=== PATIENT | male | born 1975 | race Caucasian/White ===

== ENCOUNTER 2017-01-22 18:59 | Inpatient (IN) | payer BC ==
[~2017-01-22] VITALS: Ht 182.9 cm; Wt 156.0 kg
[2017-01-22 22:40] VITALS: Ht 182.9 cm; Wt 156.0 kg
[2017-01-23] MEDS ORDERED: POLYETHYLENE GLYCOL 17 GM PACKET PO PRN
[2017-01-23] MEDS ORDERED: ONDANSETRON 4 MG INJ IV PRN
[2017-01-23] MEDS ORDERED: MAGNESIUM HYDROXIDE 30ML CUP PO PRN
[2017-01-23] MEDS ORDERED: BISACODYL 10 MG SUPP PR PRN
[2017-01-23] MEDS ORDERED: ACETAMINOPHEN 325 MG TAB PO PRN
[2017-01-23] MEDS ORDERED: LACTULOSE 30ML CUP PO PRN
[2017-01-23] MEDS: oxyCODONE 5 MG TAB PO SCH ×4 (00:50→18:00)
[2017-01-23] MEDS: SOD CHLORIDE 0.9% 1,000 ML IV SCH (00:54)
[2017-01-23 02:34] LABS: ADD UMIC NO; URINE BILIRUBIN (Dip) NEGATIVE (NEGATIVE); URINE BLOOD (Dip) NEGATIVE (NEGATIVE); URINE COLOR LT. YELLOW (YELLOW); URINE GLUCOSE (Dip) NEGATIVE (NEGATIVE); URINE KETONES (Dip) NEGATIVE (NEGATIVE); URINE LEUKOCYTE ESTERASE (Dip) NEGATIVE (NEGATIVE); URINE NITRITE (Dip) NEGATIVE (NEGATIVE); URINE TOTAL PROTEIN (Dip) NEGATIVE (NEGATIVE); URINE UROBILINOGEN (Dip) 0.2 E.U./dL (0.1-1.0)
[2017-01-23 07:30] VITALS: BP 125/65; RESP 18
[2017-01-23 07:37] LABS: ADD SCAN DIFF NO
[2017-01-23 07:39] LABS: BASOPHIL # 0.1 10^3/ul (0.0-0.1); BASOPHILS % 0.7 % (0.0-2.0); EOSINOPHILS # 0.3 10^3/ul (0.0-0.5); EOSINOPHILS % 3.3 % (0.0-7.0); HEMATOCRIT 40.3 % (42.0-52.0); HEMOGLOBIN 12.7 g/dl (14.0-18.0); LYMPHOCYTES # 4.9 10^3/ul (0.8-2.9); MEAN CORPUSCULAR HEMOGLOBIN 29.3 pg (29.0-33.0); MEAN CORPUSCULAR HGB CONC 31.5 g/dl (32.0-37.0); MEAN CORPUSCULAR VOLUME 93.1 fl (82.0-101.0); MEAN PLATELET VOLUME 10.2 fl (7.4-10.4); MONOCYTE # 0.6 10^3/ul (0.3-0.9); MONOCYTES % 7.3 % (0.0-11.0); NEUTROPHIL # 2.6 10^3/ul (1.6-7.5); NEUTROPHILS % 30.2 % (39.0-77.0); PLATELET COUNT 301 10^3/UL (140-415); RED BLOOD COUNT 4.33 10^6/ul (4.70-6.10); RED CELL DISTRIBUTION WIDTH 13.4 % (11.5-14.5); WHITE BLOOD COUNT 8.5 10^3/ul (4.8-10.8)
[2017-01-23] MEDS: HYDROmorphONE 1 MG/ML SYG IV PRN ×4 (07:48→19:05)
[2017-01-23 08:05] LABS: ALBUMIN 4.1 g/dl (3.3-4.9); ALBUMIN/GLOBULIN RATIO 1.36; BILIRUBIN,INDIRECT 0.3 mg/dl (0-1.1); BILIRUBIN,TOTAL 0.3 mg/dl (0.2-1.3); CALCIUM 9.2 mg/dl (8.4-10.2); CREATININE 0.9 mg/dl (0.61-1.24); POTASSIUM 4.2 mmol/L (3.5-5.1); TOTAL PROTEIN 7.1 g/dl (6.1-8.1)
[2017-01-23] MEDS: MAGNESIUM SULFATE 2 GM/50 ML 50 ML IVPB SCH (09:17)
[2017-01-23] MEDS: DOCUSATE SODIUM 100 MG CAP PO SCH ×2 (09:19→20:56)
[2017-01-23] MEDS: FAMOTIDINE 20 MG TAB PO SCH ×2 (09:20→20:56)
[2017-01-23] MEDS: TOPIRAMATE 25 MG TAB PO SCH ×2 (09:20→20:56)
[2017-01-23] MEDS: SENNA TAB PO SCH ×2 (09:20→20:56)
[2017-01-23] MEDS: ASCORBIC ACID 500 MG TAB PO SCH ×2 (09:20→20:56)
[2017-01-23] MEDS: ENOXAPARIN 40 MG/0.4 ML SYG SC SCH (09:22)
[2017-01-23] MEDS ORDERED: HYDROmorphONE 1 MG/ML SYG IV STA (10:19)
--- NOTE | 2017-01-23 11:16 | CONS ---
DATE OF ADMISSION: 01/22/2017 DATE OF CONSULTATION: REHABILITATION POST ADMISSION PHYSICIAN EVALUATION REHABILITATION IMPAIRMENT CATEGORY: Diffuse subarachnoid hemorrhage, status post ventriculostomy and extraventricular drain placement with eventual removal. ACTIVE COMORBIDITIES: 1. Hypertension. 2. Morbid obesity. 3. Impairments in self-care, mobility and cognition. HISTORY OF PRESENT ILLNESS: The patient is a pleasant 41-year-old right-handed gentleman with a history of morbid obesity and hypertension who was noted to have severe headache and chest pain on 01/05/2017. The patient was brought to the hospital where he was noted to have a diffuse subarachnoid hemorrhage. The patient underwent ventriculostomy and extraventricular drain placement. The patient's hospital course also notable for severe hypertension with systolic blood pressure to the 200s. The patient now has been cleared to transfer to the rehabilitation unit for comprehensive interdisciplinary rehab care. FUNCTIONAL HISTORY: Prior to recent events, he was independent in self-care tasks and mobility. Currently, requires moderate assist for self-care and mobility tasks. SOCIAL HISTORY: The patient lives at home with and hopes to return there upon discharge. I have reviewed the preadmission screen and the patient's current functional status is consistent with the preadmission screen. CURRENT MEDICATIONS: 1. Zofran p.r.n. 2. Colace 100 mg b.i.d. 3. MiraLax p.r.n. 4. Nimodipine 60 mg q.4h. 5. Magnesium IV. 6. Ascorbic acid 500 mg b.i.d. 7. Pepcid 20 mg b.i.d. 8. Labetalol p.r.n. 9. Oxycodone p.r.n. 10. Topamax 25 mg b.i.d. 11. Dilaudid 0.5 mg p.r.n. ALLERGIES: THE PATIENT WITH NO KNOWN DRUG ALLERGIES. PHYSICAL EXAMINATION: VITAL SIGNS: The patient is currently afebrile with stable vital signs. HEENT: The extraocular motions are intact. Oropharynx is clear. NECK: Supple. LUNGS: Clear anteriorly. CARDIAC: S1, S2. ABDOMEN: Soft, nontender, positive bowel sounds. NEUROLOGIC: He is awake and alert. He is oriented to person and hospital. He will follow simple 1-step commands. Cranial nerves are grossly intact. He has good strength. He has antigravity strength in bilateral upper extremity and lower extremity. Does have impaired dynamic balance. PLAN: The patient has been admitted for comprehensive interdisciplinary acute rehabilitation and is anticipated to tolerate 3 hours of daily therapy in divided doses for at least 5/7 days a week. The treatment plan will include: 1. Physical therapy to focus on bed mobility, transfers, and household ambulation with the goal of having the patient reach a standby assist level. 2. Occupational therapy to focus on hygiene, grooming, dressing, bathing, and toileting activities with the goal of having the patient reach standby assist level. 3. Rehabilitation nursing for carryover of therapeutic interventions, the goal of continent of bowel and bladder, and the goal of patient and family education with regard to the aforementioned issues. 4. Rehabilitation speech therapy for full cognitive assessment and retraining with the goal of having patient return to baseline cognition. Esitmated Length Of Stay: 2 weeks Rehabilitation Barrier: Obesity Intervention For Barrier: Interdisciplinary rehabilitation DISPOSITION GOAL: Home with family I acknowledge that I performed a full physical examination on this patient within 24 hours of admission to the rehabilitation unit. I believe the patient is a good candidate for comprehensive interdisciplinary rehab care and is anticipated to make reasonable goals in a reasonable period of time as outlined above. Dictated By: MILTON FERREIRA/CARMELA Conf#: [id number] DID#: [id number] ANITA
[2017-01-23] MEDS: VITAMIN B COMPLEX/VIT C CAP PO SCH (18:09)
--- NOTE | 2017-01-23 19:16 | QN ---
Documentation Comment [id number] EVERETTE SIDHU MD Jan 23, 2017 19:16
[2017-01-23 20:00] VITALS: BP 123/65; RESP 16
[2017-01-24] MEDS: SOD CHLORIDE 0.9% 1,000 ML IV SCH (00:30)
[2017-01-24] MEDS: oxyCODONE 5 MG TAB PO SCH ×4 (00:45→17:21)
--- NOTE | 2017-01-24 06:34 | CONS ---
DATE OF ADMISSION: 01/22/2017 DATE OF CONSULTATION: TYPE OF CONSULTATION: Medicine. HISTORY OF PRESENT ILLNESS: Salvatore Sullivan is a 41-year-old male who was transferred from [facility]. A 41-year-old male with no significant past medical history in the past, presents to the hospital with headache. The patient was giving a sermon in yazidi. He then stepped outside and 1 minute later ran back holding his head, complaining of headache and chest pain. He has been complaining of severe sudden-onset headache, and he was noted to have a facial droop, slurred speech. He was taken to , where CT head showed a subarachnoid hemorrhage. Blood pressure was in the 200s. He was given Cardene and mannitol, morphine. The patient was monitored in intensive care unit. The patient noted to have subarachnoid hemorrhage. The patient now is transferred to [facility] for physical therapy. The patient also noted to have leukocytosis, CSF pleocytosis, received antibiotic. The patient was also given DDAVP and platelets per Hematology. The patient also has carotid artery angiogram done. The patient's blood pressure being recorded as 135/69. The patient denies any headache at this point. PAST MEDICAL HISTORY: Positive for hypertension. ALLERGY HISTORY: NEGATIVE. FAMILY HISTORY: Hypertension. SOCIAL HISTORY: Negative. MEDICATION HISTORY: 1. Zofran. 2. Colace. 3. MiraLax. 4. Nimodipine. 5. Magnesium . 6. Ascorbic acid. 7. Pepcid. 8. Labetalol. 9. Oxycodone. 10. Topamax. 11. Dilaudid. 12. Lovenox. 13. Riboflavin. 14. vit. 15. Milk of magnesia. 16. Lactulose. 17. Dulcolax. 18. Senna. 19. Tylenol. . REVIEW OF SYSTEMS: HEENT: Unremarkable. RESPIRATORY: Unremarkable. CARDIOVASCULAR: No chest pain, palpitation. ABDOMEN: No dyspepsia. EXTREMITIES: Unremarkable. CENTRAL NERVOUS SYSTEM: Complains of this weakness but able to move both upper , lower extremities. PHYSICAL EXAMINATION: GENERAL: The patient is obese, overweight male, awake, alert, not in any acute respiratory distress. VITAL SIGNS: Stable. Pulse 80, blood pressure 125/65. HEAD: The patient is status post ventriculostomy and no drain noted . NECK: Supple. No JVD. LUNGS: Clear. CARDIOVASCULAR: S1, S2 are normal. ABDOMEN: Soft, obese. Bowel sounds present. No palpable mass. EXTREMITIES: There is no cyanosis, clubbing or edema. CENTRAL NERVOUS SYSTEM: The patient is awake, alert, moving both upper and lower extremities. LABORATORY DATA: WBC 8.5, hematocrit 40.3. Sodium 130, potassium 4.2. IMPRESSION: 1. The patient has subarachnoid hemorrhage, status post ventriculostomy and removal. 2. The patient is status post angiogram. 3. Hypertension. 4. Anemia. PLAN: At this point is to continue current treatment, physical therapy, occupational therapy. Other recommendations per Dr. Viktor Shanks for physical therapy. Dictated By: EVERETTE MIXON/CARMELA Conf#: [id number] DID#: [id number] MTDD
[2017-01-24 07:44] VITALS: BP 115/61; RESP 18
[2017-01-24] MEDS: HYDROmorphONE 1 MG/ML SYG IV PRN ×4 (07:47→19:02)
[2017-01-24] MEDS: SENNA TAB PO SCH ×2 (08:24→20:58)
[2017-01-24] MEDS: DOCUSATE SODIUM 100 MG CAP PO SCH ×2 (08:25→20:57)
[2017-01-24] MEDS: FAMOTIDINE 20 MG TAB PO SCH ×2 (08:25→20:57)
[2017-01-24] MEDS: ASCORBIC ACID 500 MG TAB PO SCH ×2 (08:25→20:58)
[2017-01-24] MEDS: VITAMIN B COMPLEX/VIT C CAP PO SCH (08:25)
[2017-01-24] MEDS: ENOXAPARIN 40 MG/0.4 ML SYG SC SCH (08:26)
[2017-01-24] MEDS: TOPIRAMATE 25 MG TAB PO SCH ×2 (08:33→20:58)
[2017-01-24] MEDS: MAGNESIUM SULFATE 2 GM/50 ML 50 ML IVPB SCH (10:29)
--- NOTE | 2017-01-24 11:32 | CONS ---
Date/Time of Note Date/Time of Note DATE: 01/24/17 TIME: 11:29 Consult Date/Type/Reason Admit Date/Time January 22, 2017 at 22:10 Initial Consult Date Subjective patient complains of increased headache today, also with increased diplopia Objective disconjugate gaze follows commands, antigravity strength in 4 extremities Vital Signs Date Time Temp Pulse Resp B/P Pulse Ox O2 Delivery O2 Flow Rate FiO2 01/24/17 07:44 98.7 77 18 115/61 96 Intake and Output 01/23/17 01/23/17 01/24/17 15:00 23:00 07:00 Intake Total 50 ml 1060 ml 240 ml Output Total 620 ml 850 ml Balance 50 ml 440 ml -610 ml Results/Medications Result Diagram: 01/23/1760401/23/17 06 Medications Current Medications Nimodipine 60 mg 60 mg Q4 PO Last administered on 01/24/17 08:33; Admin Dose 60 MG; Start 01/23/17 at 01:00; Stop 01/26/17 at 23:59 Sodium Chloride (NS) 1,000 ml @ 20 mls/hr Q24H IV Last administered on 00:54; Admin Dose 20 MLS/HR; Start 01/23/17 at 00:30 Enoxaparin Sodium (Lovenox) 40 mg DAILY SC Last administered on 01/24/17 08:26 ; Admin Dose 40 MG; Start 01/23/17 at 09:00 Magnesium Oxide (Mag-Ox 400) 400 mg BID PO ; Start 01/27/17 at 09:00 Ondansetron HCl (Zofran Inj) 4 mg Q8H PRN IV NAUSEA AND/OR VOMITING; Start 01/23 at 00:00 Docusate Sodium (Colace) 100 mg BID PO Last administered on 01/24/17 08:25; Admin Dose 100 MG; Start 01/23/17 at 09:00 Magnesium Hydroxide (Milk Of Mag) 30 ml Q6H PRN PO CONSTIPATION; Start 01/23/17 at 00:00 Lactulose (Enulose) 20 gm BID PRN PO CONSTIPATION; Start 01/23/17 at 00:00 Bisacodyl (Dulcolax Supp) 10 mg Q24H PRN [place] CONSTIPATION; Start 01/23/17 at 00: 00 Polyethylene Glycol 17 gm 17 gm DAILY PRN PO CONSTIPATION; Start 01/23/17 at 00: 00 Magnesium Sulfate (Magnesium Sulfate 2 Gm/50 ml) 50 ml @ 25 mls/hr DAILY IVPB Last administered on 01/24/17 10:29; Admin Dose 25 MLS/HR; Start 01/23/17 at 09: 00; Stop 01/26/17 at 08:59 Ascorbic Acid (Vitamin C) 500 mg BID PO Last administered on 01/24/17 08:25; Admin Dose 500 MG; Start 01/23/17 at 09:00; Stop 01/26/17 at 08:59 Famotidine (Pepcid) 20 mg BID PO Last administered on 01/24/17 08:25; Admin Dose 20 MG; Start 01/23/17 at 09:00 Senna (Senokot) 1 tab BID PO Last administered on 01/24/17 08:24; Admin Dose 1 TAB; Start 01/23/17 at 09:00 Acetaminophen (Tylenol Tab) 650 mg Q6H PRN PO ELEVATED TEMPERATURE; Start at 00:00 Topiramate (Topamax) 25 mg BID PO Last administered on 01/24/17 08:33; Admin Dose 25 MG; Start 01/23/17 at 09:00 Oxycodone HCl (Roxicodone) 20 mg Q6 PO Last administered on 01/24/17 05:31; Admin Dose 20 MG; Start 01/23/17 at 12:00 Vitamin B Complex/ Vitamin C (Berocca) 1 cap DAILY PO Last administered on 08:25; Admin Dose 1 CAP; Start 01/23/17 at 15:00 Hydromorphone HCl (Dilaudid) 1 mg Q3H PRN IV SEVERE PAIN Last administered on 07:47; Admin Dose 1 MG; Start 01/23/17 at 21:00 Assessment/Plan Additional Assessment/Plan Rehab- diffuse SAH, s/p ventriculostomy Now with worsening diplia. Will order stat head CT, and neurochecks. HTN morbid obesity MILTON STATON MD Jan 24, 2017 11:32
--- NOTE | 2017-01-24 12:48 | RADRPT ---
PROCEDURE: CT Brain without. CLINICAL INDICATION: Double vision. TECHNIQUE: A CT of the brain was performed on multidetector high-resolution CT scanner utilizing a xial sections from the skull base through the vertex without contrast. The scan was reviewed in sof t tissue brain and high frequency resolution bone algorithm windows. Images were reviewed on a high -resolution PACS workstation. One or more the following does reduction techniques were utilized: Aut omated exposure control, adjustment of the mA/ or kV according to patient's size, or use of iterativ e reconstruction technique. The exam CTDI = 44.88 mGy and the DLP = 720.23 mGy-cm. COMPARISON: None available. FINDINGS: There is small right frontal robert hole with associated linear encephalomalacia in the right frontal lobe which likely represent sequela of prior ventriculostomy catheter. The ventricles and sulci are mildly enlarged indicative of volume loss. There is no intracranial hem orrhage, mass effect or midline shift. No abnormal intra-axial or extra-axial fluid collections are seen. The justin/white matter differentiation is preserved. No acute skull abnormality is noted. The visualized paranasal sinuses are essentially clear. IMPRESSION: 1. No acute intracranial hemorrhage, transcortical infarction or mass effect. If clinical concern p ersists consider brain MRI. RPTAT: JJ .Dayday Gusman MD, MD Date Time Electronically viewed and signed by .Dayday Gusman MD, MD on 01/24/2017 12:48 .N/
--- NOTE | 2017-01-24 13:34 | PN ---
Date/Time of Note Date/Time of Note DATE: 01/24/17 TIME: 13:32 Assessment/Plan VTE Prophylaxis VTE Prophylaxis Intervention: SCD's Lines/Catheters IV [facility]from [facility] Mid Line Central line still needed: Yes Urinary Cath still in place: No Assessment/Plan Chief Complaint/Hosp Course 1. The patient has subarachnoid hemorrhage, status post ventriculostomy and removal. 2. The patient is status post heart angiogram. 3. Hypertension. 4. Anemia. 5. diplopia 6. Obesity Problems: Assessment/Plan 1. Continue PT and OT 2. Abnormal Ct scan 3. Dr Cadena for consult Subjective 24 Hr Interval Summary Constitutional: no complaints Eyes: other (diplopia), visual change Respiratory: no complaints Cardiovascular: no complaints Gastrointestinal: no complaints Genitourinary: no complaints Neurologic: headache (12/02) Immunologic: no complaints Exam/Review of Systems Vital Signs Vitals Vital Signs Date Time Temp Pulse Resp B/P Pulse Ox O2 Delivery O2 Flow Rate FiO2 01/24/17 07:44 98.7 77 18 115/61 96 Intake and Output 01/23/17 01/23/17 01/24/17 15:00 23:00 07:00 Intake Total 50 ml 1060 ml 240 ml Output Total 620 ml 850 ml Balance 50 ml 440 ml -610 ml Exam Constitutional: alert, obese, oriented Psych: no complaints Head: normocephalic, other Eyes: nl conjunctiva ENMT: nl external ears & nose Neck: supple Cardiovascular: edema (lower extremities), regular rate and rhythm Genitourinary - Male: nl penis Extremities: normal pulses Results Result Diagram: 01/23/1760401/23/17604 Medications Medications Current Medications Nimodipine 60 mg 60 mg Q4 PO Last administered on 01/24/17 13:10; Admin Dose 60 MG; Start 01/23/17 at 01:00; Stop 01/26/17 at 23:59 Sodium Chloride (NS) 1,000 ml @ 20 mls/hr Q24H IV Last administered on 00:54; Admin Dose 20 MLS/HR; Start 01/23/17 at 00:30 Enoxaparin Sodium (Lovenox) 40 mg DAILY SC Last administered on 01/24/17 08:26 ; Admin Dose 40 MG; Start 01/23/17 at 09:00 Magnesium Oxide (Mag-Ox 400) 400 mg BID PO ; Start 01/27/17 at 09:00 Ondansetron HCl (Zofran Inj) 4 mg Q8H PRN IV NAUSEA AND/OR VOMITING; Start 01/23 at 00:00 Docusate Sodium (Colace) 100 mg BID PO Last administered on 01/24/17 08:25; Admin Dose 100 MG; Start 01/23/17 at 09:00 Magnesium Hydroxide (Milk Of Mag) 30 ml Q6H PRN PO CONSTIPATION; Start 01/23/17 at 00:00 Lactulose (Enulose) 20 gm BID PRN PO CONSTIPATION; Start 01/23/17 at 00:00 Bisacodyl (Dulcolax Supp) 10 mg Q24H PRN [place] CONSTIPATION; Start 01/23/17 at 00: 00 Polyethylene Glycol 17 gm 17 gm DAILY PRN PO CONSTIPATION; Start 01/23/17 at 00: 00 Magnesium Sulfate (Magnesium Sulfate 2 Gm/50 ml) 50 ml @ 25 mls/hr DAILY IVPB Last administered on 01/24/17 10:29; Admin Dose 25 MLS/HR; Start 01/23/17 at 09: 00; Stop 01/26/17 at 08:59 Ascorbic Acid (Vitamin C) 500 mg BID PO Last administered on 01/24/17 08:25; Admin Dose 500 MG; Start 01/23/17 at 09:00; Stop 01/26/17 at 08:59 Famotidine (Pepcid) 20 mg BID PO Last administered on 01/24/17 08:25; Admin Dose 20 MG; Start 01/23/17 at 09:00 Senna (Senokot) 1 tab BID PO Last administered on 01/24/17 08:24; Admin Dose 1 TAB; Start 01/23/17 at 09:00 Acetaminophen (Tylenol Tab) 650 mg Q6H PRN PO ELEVATED TEMPERATURE; Start at 00:00 Topiramate (Topamax) 25 mg BID PO Last administered on 01/24/17 08:33; Admin Dose 25 MG; Start 01/23/17 at 09:00 Oxycodone HCl (Roxicodone) 20 mg Q6 PO Last administered on 01/24/17 05:31; Admin Dose 20 MG; Start 01/23/17 at 12:00 Vitamin B Complex/ Vitamin C (Berocca) 1 cap DAILY PO Last administered on 08:25; Admin Dose 1 CAP; Start 01/23/17 at 15:00 Hydromorphone HCl (Dilaudid) 1 mg Q3H PRN IV SEVERE PAIN Last administered on 13:11; Admin Dose 1 MG; Start 01/23/17 at 21:00 HERO ARIAS Jan 24, 2017 13:34
[2017-01-24 20:00] VITALS: BP 111/65; PULSE 79; RESP 18
[2017-01-25] MEDS: oxyCODONE 5 MG TAB PO SCH ×4 (00:20→18:20)
[2017-01-25] MEDS: SOD CHLORIDE 0.9% 1,000 ML IV SCH (00:24)
[2017-01-25 07:30] VITALS: BP 131/68; RESP 18
[2017-01-25 07:33] LABS: ADD SCAN DIFF NO
[2017-01-25 07:37] LABS: ABNORMAL IP MESSAGE 1; HEMOGLOBIN 12.7 g/dl (14.0-18.0); MEAN CORPUSCULAR HEMOGLOBIN 29.5 pg (29.0-33.0); MEAN CORPUSCULAR HGB CONC 31.8 g/dl (32.0-37.0); MEAN PLATELET VOLUME 9.8 fl (7.4-10.4); PLATELET COUNT 319 10^3/UL (140-415); RED CELL DISTRIBUTION WIDTH 13.1 % (11.5-14.5); WHITE BLOOD COUNT 7.7 10^3/ul (4.8-10.8)
[2017-01-25 07:54] LABS: CALCIUM 9.2 mg/dl (8.4-10.2); CREATININE 1.01 mg/dl (0.61-1.24); POTASSIUM 4.1 mmol/L (3.5-5.1)
[2017-01-25] MEDS: MAGNESIUM SULFATE 2 GM/50 ML 50 ML IVPB SCH (08:22)
[2017-01-25] MEDS: FAMOTIDINE 20 MG TAB PO SCH ×2 (08:23→21:33)
[2017-01-25] MEDS: ASCORBIC ACID 500 MG TAB PO SCH ×2 (08:23→21:33)
[2017-01-25] MEDS: DOCUSATE SODIUM 100 MG CAP PO SCH ×2 (08:23→21:32)
[2017-01-25] MEDS: VITAMIN B COMPLEX/VIT C CAP PO SCH (08:23)
[2017-01-25] MEDS: TOPIRAMATE 25 MG TAB PO SCH ×2 (08:23→21:33)
[2017-01-25] MEDS: SENNA TAB PO SCH ×2 (08:24→21:32)
[2017-01-25] MEDS: ENOXAPARIN 40 MG/0.4 ML SYG SC SCH (08:27)
[2017-01-25 10:04] LABS: EOSINOPHILS # 0.4 10^3/ul (0.0-0.5); LYMPHOCYTES # 5.2 10^3/ul (0.8-2.9); MONOCYTE # 0.6 10^3/ul (0.3-0.9); NEUTROPHIL # 1.2 10^3/ul (1.6-7.5)
[2017-01-25] MEDS: ERTAPENEM SODIUM 1 GM in SOD CHLORIDE 0.9% 100 ML IVPB SCH (12:31)
--- NOTE | 2017-01-25 13:20 | PN ---
Date/Time of Note Date/Time of Note DATE: 01/25/17 TIME: 13:19 Assessment/Plan VTE Prophylaxis VTE Prophylaxis Intervention: SCD's Lines/Catheters IV Catheter Type (from Nrs): Mid Line Central line still needed: Yes Urinary Cath still in place: No Assessment/Plan Chief Complaint/Hosp Course 1. The patient has subarachnoid hemorrhage, status post ventriculostomy and removal. 2. The patient is status post heart angiogram. 3. Hypertension. 4. Anemia. 5. diplopia 6. Obesity Problems: Assessment/Plan 1. Continue rehabilitation 2. Per Neuro Subjective 24 Hr Interval Summary Constitutional: improved, no complaints Eyes: other (diplopia) Exam/Review of Systems Vital Signs Vitals Vital Signs Date Time Temp Pulse Resp B/P Pulse Ox O2 Delivery O2 Flow Rate FiO2 01/25/17 07:30 98.7 78 18 131/68 99 01/24/17 20:00 Room Air Intake and Output 01/24/17 01/24/17 01/25/17 15:00 23:00 07:00 Intake Total 960 ml 810 ml Output Total 250 ml 400 ml 1300 ml Balance 710 ml 410 ml -1300 ml Exam Constitutional: alert, oriented Neck: non-tender, supple Respiratory: clear to auscultation Cardiovascular: regular rate and rhythm Results Result Diagram: 01/25/17 0620 01/25/17 0620 Results 24 hrs Laboratory Tests Test 01/25/17 06:20 White Blood Count 7.7 Red Blood Count 4.30 L Hemoglobin 12.7 L Hematocrit 40.0 L Mean Corpuscular Volume 93.0 Mean Corpuscular Hemoglobin 29.5 Mean Corpuscular Hemoglobin Concent 31.8 L Red Cell Distribution Width 13.1 Platelet Count 319 Mean Platelet Volume 9.8 Neutrophils % 16.0 L Lymphocytes % 68.0 H Reactive Lymphocytes % 3.0 Monocytes % 8.0 Eosinophils % 5.0 Basophils % Nucleated Red Blood Cells % Neutrophils # 1.2 L Lymphocytes # 5.2 H Monocytes # 0.6 Eosinophils # 0.4 Basophils # Nucleated Red Blood Cells # Sodium Level 140 Potassium Level 4.1 Chloride Level 106 Carbon Dioxide Level 25 Anion Gap 13 Blood Urea Nitrogen 11 Creatinine 1.01 Glucose Level 94 Calcium Level 9.2 Magnesium Level 2.1 Medications Medications Current Medications Nimodipine 60 mg 60 mg Q4 PO Last administered on 01/25/17t 12:32; Admin Dose 60 MG; Start 01/23/17 at 01:00; Stop 01/26/17 at 23:59 Sodium Chloride (NS) 1,000 ml @ 20 mls/hr Q24H IV Last administered on 00:54; Admin Dose 20 MLS/HR; Start 01/23/17 at 00:30 Enoxaparin Sodium (Lovenox) 40 mg DAILY SC Last administered on 01/25/17 08:27 ; Admin Dose 40 MG; Start 01/23/17 at 09:00 Magnesium Oxide (Mag-Ox 400) 400 mg BID PO ; Start 01/27/17 at 09:00 Ondansetron HCl (Zofran Inj) 4 mg Q8H PRN IV NAUSEA AND/OR VOMITING; Start 01/23 at 00:00 Docusate Sodium (Colace) 100 mg BID PO Last administered on 01/25/17 08:23; Admin Dose 100 MG; Start 01/23/17 at 09:00 Magnesium Hydroxide (Milk Of Mag) 30 ml Q6H PRN PO CONSTIPATION; Start 01/23/17 at 00:00 Lactulose (Enulose) 20 gm BID PRN PO CONSTIPATION; Start 01/23/17 at 00:00 Bisacodyl (Dulcolax Supp) 10 mg Q24H PRN [place] CONSTIPATION; Start 01/23/17 at 00: 00 Polyethylene Glycol 17 gm 17 gm DAILY PRN PO CONSTIPATION; Start 01/23/17 at 00: 00 Magnesium Sulfate (Magnesium Sulfate 2 Gm/50 ml) 50 ml @ 25 mls/hr DAILY IVPB Last administered on 01/25/17 08:22; Admin Dose 25 MLS/HR; Start 01/23/17 at 09: 00; Stop 01/26/17 at 08:59 Ascorbic Acid (Vitamin C) 500 mg BID PO Last administered on 01/25/17 08:23; Admin Dose 500 MG; Start 01/23/17 at 09:00; Stop 01/26/17 at 08:59 Famotidine (Pepcid) 20 mg BID PO Last administered on 01/25/17 08:23; Admin Dose 20 MG; Start 01/23/17 at 09:00 Senna (Senokot) 1 tab BID PO Last administered on 01/25/17 08:24; Admin Dose 1 TAB; Start 01/23/17 at 09:00 Acetaminophen (Tylenol Tab) 650 mg Q6H PRN PO ELEVATED TEMPERATURE; Start at 00:00 Topiramate (Topamax) 25 mg BID PO Last administered on 01/25/17 08:23; Admin Dose 25 MG; Start 01/23/17 at 09:00 Oxycodone HCl (Roxicodone) 20 mg Q6 PO Last administered on 01/25/17 12:21; Admin Dose 20 MG; Start 01/23/17 at 12:00 Vitamin B Complex/ Vitamin C (Berocca) 1 cap DAILY PO Last administered on 08:23; Admin Dose 1 CAP; Start 01/23/17 at 15:00 Hydromorphone HCl (Dilaudid) 1 mg Q3H PRN IV SEVERE PAIN Last administered on 16:02; Admin Dose 1 MG; Start 01/23/17 at 21:00 Simethicone 80 mg 80 mg Q6 PRN PO DISTENSION/GAS/BLOATING; Start 01/24/17 at 20: 00 Ertapenem/Sodium Chloride (Invanz/NS) 100 ml @ 200 mls/hr Q24H IVPB Last administered on 01/25/17 12:31; Admin Dose 200 MLS/HR; Start 01/25/17 at 13:00 HERO ARIAS Jan 25, 2017 13:20
--- NOTE | 2017-01-25 13:28 | CONS ---
Date/Time of Note Date/Time of Note DATE: 01/25/17 TIME: 13:19 Assessment/Plan Assessment/Plan Chief Complaint/Hosp Course Subarachnoid hemorrhage with diplopia Problems: Additional Assessment/Plan Patient is a 41-year-old male with history of hypertension and moderate obesity was initially admitted with sudden onset of headache and left facial droop. He was also seen to be having slurring speech. A CT scan of the brain showed subarachnoid hemorrhage and intraventricular hemorrhage and his initial blood pressure was more than 200 systolic. He was treated with Cardene and mannitol. He also was seen by neurosurgery and underwent a ventriculostomy placement. CT angiogram was unremarkable. Repeat CT scan of the brain showed vasospasm. He is currently in rehab and has been reporting double vision for the last few days. A CT scan of the brain showed small right bur hole placement with linear encephalomalacia in the right frontal lobes, nothing acute. 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 Would like to rule out brainstem stroke. Plan 1 MRI of the brain 2 start on aspirin 81 mg p.o. daily 3 we will follow Consultation Date/Type/Reason Admit Date/Time January 22, 2017 at 22:10 Date of Consultation: Jan 25, 2017 Type of Consultation: Neurology Reason for Consultation Double vision Referring Provider: EVERETTE SIDHU MD Hx of Present Illness Patient is a 41-year-old male with history of hypertension and moderate obesity was initially admitted with sudden onset of headache and left facial droop. He was also seen to be having slurring speech. A CT scan of the brain showed subarachnoid hemorrhage and intraventricular hemorrhage and his initial blood pressure was more than 200 systolic. He was treated with Cardene and mannitol. He also was seen by neurosurgery and underwent a ventriculostomy placement. CT angiogram was unremarkable. Repeat CT scan of the brain showed vasospasm. He is currently in rehab and has been reporting double vision for the last few days. A CT scan of the brain showed small right bur hole placement with linear encephalomalacia in the right frontal lobes, nothing acute. Neurology consult was called to evaluate his neurological status. Constitutional: no complaints Eyes: other (diplopia), visual change Respiratory: no complaints Cardiovascular: no complaints Gastrointestinal: no complaints Genitourinary: no complaints Neurologic: headache (4/10) Psychological: no complaints Immunologic: no complaints Past Medical History Medical History: hypertension Past Surgical History Past Surgical Hx: no surgical history Social History Alcohol Use: none Smoking Status: Never smoker Exam/Review of Systems Vital Signs Vitals Vital Signs Date Time Temp Pulse Resp B/P Pulse Ox O2 Delivery O2 Flow Rate FiO2 01/25/17 07:30 98.7 78 18 131/68 99 01/24/17 20:00 Room Air Intake and Output 01/24/17 01/24/17 01/25/17 14:59 22:59 06:59 Intake Total 960 ml 810 ml Output Total 250 ml 400 ml 1300 ml Balance 710 ml 410 ml -1300 ml Exam Constitutional: alert, oriented, well developed Psych: nl mood/affect, no complaints Head: atraumatic, normocephalic Eyes: EOMI, nl conjunctiva, nl lids, nl sclera ENMT: mucosa pink and moist, nl external ears & nose, nl lips & teeth, nl nasal mucosa & septum Neck: non-tender, supple Respiratory: clear to auscultation, normal air movement Cardiovascular: nl pulses, regular rate and rhythm Gastrointestinal: nl liver, spleen, non-tender, soft Neurological: other (Diplopia due to weakness of bilateral lateral rectus which are supplied by 6th cranial nerve otherwise nonfocal exam) Skin: nl turgor Lymph: nl lymph nodes Results Result Diagram: 01/25/17 0620 01/25/17 0620 Results 24 hrs Laboratory Tests Test 01/25/17 06:20 White Blood Count 7.7 Red Blood Count 4.30 L Hemoglobin 12.7 L Hematocrit 40.0 L Mean Corpuscular Volume 93.0 Mean Corpuscular Hemoglobin 29.5 Mean Corpuscular Hemoglobin Concent 31.8 L Red Cell Distribution Width 13.1 Platelet Count 319 Mean Platelet Volume 9.8 Neutrophils % 16.0 L Lymphocytes % 68.0 H Reactive Lymphocytes % 3.0 Monocytes % 8.0 Eosinophils % 5.0 Basophils % Nucleated Red Blood Cells % Neutrophils # 1.2 L Lymphocytes # 5.2 H Monocytes # 0.6 Eosinophils # 0.4 Basophils # Nucleated Red Blood Cells # Sodium Level 140 Potassium Level 4.1 Chloride Level 106 Carbon Dioxide Level 25 Anion Gap 13 Blood Urea Nitrogen 11 Creatinine 1.01 Glucose Level 94 Calcium Level 9.2 Magnesium Level 2.1 Medications Medications Current Medications Nimodipine 60 mg 60 mg Q4 PO Last administered on 01/25/17t 12:32; Admin Dose 60 MG; Start 01/23/17 at 01:00; Stop 01/26/17 at 23:59 Sodium Chloride (NS) 1,000 ml @ 20 mls/hr Q24H IV Last administered on 00:54; Admin Dose 20 MLS/HR; Start 01/23/17 at 00:30 Enoxaparin Sodium (Lovenox) 40 mg DAILY SC Last administered on 01/25/17 08:27 ; Admin Dose 40 MG; Start 01/23/17 at 09:00 Magnesium Oxide (Mag-Ox 400) 400 mg BID PO ; Start 01/27/17 at 09:00 Ondansetron HCl (Zofran Inj) 4 mg Q8H PRN IV NAUSEA AND/OR VOMITING; Start 01/23 at 00:00 Docusate Sodium (Colace) 100 mg BID PO Last administered on 01/25/17 08:23; Admin Dose 100 MG; Start 01/23/17 at 09:00 Magnesium Hydroxide (Milk Of Mag) 30 ml Q6H PRN PO CONSTIPATION; Start 01/23/17 at 00:00 Lactulose (Enulose) 20 gm BID PRN PO CONSTIPATION; Start 01/23/17 at 00:00 Bisacodyl (Dulcolax Supp) [address] CONSTIPATION; Start 01/23/17 at 00: 00 Polyethylene Glycol 17 gm 17 gm DAILY PRN PO CONSTIPATION; Start 01/23/17 at 00: 00 Magnesium Sulfate (Magnesium Sulfate 2 Gm/50 ml) 50 ml @ 25 mls/hr DAILY IVPB Last administered on 01/25/17 08:22; Admin Dose 25 MLS/HR; Start 01/23/17 at 09: 00; Stop 01/26/17 at 08:59 Ascorbic Acid (Vitamin C) 500 mg BID PO Last administered on 01/25/17 08:23; Admin Dose 500 MG; Start 01/23/17 at 09:00; Stop 01/26/17 at 08:59 Famotidine (Pepcid) 20 mg BID PO Last administered on 01/25/17 08:23; Admin Dose 20 MG; Start 01/23/17 at 09:00 Senna (Senokot) 1 tab BID PO Last administered on 01/25/17 08:24; Admin Dose 1 TAB; Start 01/23/17 at 09:00 Acetaminophen (Tylenol Tab) 650 mg Q6H PRN PO ELEVATED TEMPERATURE; Start at 00:00 Topiramate (Topamax) 25 mg BID PO Last administered on 01/25/17 08:23; Admin Dose 25 MG; Start 01/23/17 at 09:00 Oxycodone HCl (Roxicodone) 20 mg Q6 PO Last administered on 01/25/17 12:21; Admin Dose 20 MG; Start 01/23/17 at 12:00 Vitamin B Complex/ Vitamin C (Berocca) 1 cap DAILY PO Last administered on 08:23; Admin Dose 1 CAP; Start 01/23/17 at 15:00 Hydromorphone HCl (Dilaudid) 1 mg Q3H PRN IV SEVERE PAIN Last administered on 16:02; Admin Dose 1 MG; Start 01/23/17 at 21:00 Simethicone 80 mg 80 mg Q6 PRN PO DISTENSION/GAS/BLOATING; Start 01/24/17 at 20: 00 Ertapenem/Sodium Chloride (Invanz/NS) 100 ml @ 200 mls/hr Q24H IVPB Last administered on 01/25/17 12:31; Admin Dose 200 MLS/HR; Start 01/25/17 at 13:[address] brain 01/24/2017 FINDINGS: There is small right frontal robert hole with associated linear encephalomalacia in the right frontal lobe which likely represent sequela of prior ventriculostomy catheter. The ventricles and sulci are mildly enlarged indicative of volume loss. There is no intracranial hemorrhage, mass effect or midline shift. No abnormal intra- axial or extra-axial fluid collections are seen. The justin/white matter differentiation is preserved. No acute skull abnormality is noted. The visualized paranasal sinuses are essentially clear. IMPRESSION: 1. No acute intracranial hemorrhage, transcortical infarction or mass effect. If clinical concern persists consider brain MRI. RPTAT: JJ .Dayday Gusman MD, Date Time Electronically viewed and signed by .Dayday Gusman MD, on 01/24/2017 12:48 REGINO PORTER MD Jan 25, 2017 13:28
[2017-01-25 19:49] VITALS: BP 114/57; RESP 18
[2017-01-26] MEDS: SOD CHLORIDE 0.9% 1,000 ML IV SCH (00:30)
[2017-01-26] MEDS ORDERED: LIDOCAINE 1% (MPF) 5 ML VIAL SC ONE (04:00)
[2017-01-26] MEDS: oxyCODONE 5 MG TAB PO SCH ×5 (05:41→23:58)
[2017-01-26] MEDS: VITAMIN B COMPLEX/VIT C CAP PO SCH (09:21)
[2017-01-26] MEDS: TOPIRAMATE 25 MG TAB PO SCH ×2 (09:21→20:31)
[2017-01-26] MEDS: ASPIRIN (EC) 81 MG TAB PO SCH (09:22)
[2017-01-26] MEDS: DOCUSATE SODIUM 100 MG CAP PO SCH ×2 (09:22→21:00)
[2017-01-26] MEDS: SENNA TAB PO SCH ×2 (09:22→21:00)
[2017-01-26] MEDS: FAMOTIDINE 20 MG TAB PO SCH ×2 (09:22→20:31)
[2017-01-26] MEDS: ENOXAPARIN 40 MG/0.4 ML SYG SC SCH (09:26)
--- NOTE | 2017-01-26 10:37 | CONS ---
Date/Time of Note Date/Time of Note DATE: 01/26/17 TIME: 10:36 Consult Date/Type/Reason Admit Date/Time January 22, 2017 at 22:10 Type of Consultation: Neurology Ordering Provider: EVERETTE SIDHU MD Subjective patient feels much better Objective pulm-cta abd-soft Vital Signs Date Time Temp Pulse Resp B/P Pulse Ox O2 Delivery O2 Flow Rate FiO2 01/25/17 19:49 98.9 99 18 114/57 99 01/24/17 20:00 Room Air Intake and Output 01/25/17 01/25/17 01/26/17 15:00 23:00 07:00 Intake Total 550 ml 870 ml 480 ml Output Total 450 ml 400 ml Balance 100 ml 470 ml 480 ml Results/Medications Result Diagram: 01/25/1761901/25/17619 Medications Current Medications Nimodipine 60 mg 60 mg Q4 PO Last administered on 01/26/17 09:32; Admin Dose 60 MG; Start 01/23/17 at 01:00; Stop 01/26/17 at 23:59 Sodium Chloride (NS) 1,000 ml @ 20 mls/hr Q24H IV Last administered on 00:54; Admin Dose 20 MLS/HR; Start 01/23/17 at 00:30 Enoxaparin Sodium (Lovenox) 40 mg DAILY SC Last administered on 01/26/17 09:26 ; Admin Dose 40 MG; Start 01/23/17 at 09:00 Magnesium Oxide (Mag-Ox 400) 400 mg BID PO ; Start 01/27/17 at 09:00 Ondansetron HCl (Zofran Inj) 4 mg Q8H PRN IV NAUSEA AND/OR VOMITING; Start 01/23 at 00:00 Docusate Sodium (Colace) 100 mg BID PO Last administered on 01/26/17 09:22; Admin Dose 100 MG; Start 01/23/17 at 09:00 Magnesium Hydroxide (Milk Of Mag) 30 ml Q6H PRN PO CONSTIPATION; Start 01/23/17 at 00:00 Lactulose (Enulose) 20 gm BID PRN PO CONSTIPATION; Start 01/23/17 at 00:00 Bisacodyl (Dulcolax Supp) 10 mg Q24H PRN SC CONSTIPATION; Start 01/23/17 at 00: 00 Polyethylene Glycol (Miralax) 17 gm DAILY PRN PO CONSTIPATION; Start 01/23/17 at 00:00 Famotidine (Pepcid) 20 mg BID PO Last administered on 01/26/17 09:22; Admin Dose 20 MG; Start 01/23/17 at 09:00 Senna (Senokot) 1 tab BID PO Last administered on 01/26/17 09:22; Admin Dose 1 TAB; Start 01/23/17 at 09:00 Acetaminophen (Tylenol Tab) 650 mg Q6H PRN PO ELEVATED TEMPERATURE; Start at 00:00 Topiramate (Topamax) 25 mg BID PO Last administered on 01/26/17 09:21; Admin Dose 25 MG; Start 01/23/17 at 09:00 Oxycodone HCl (Roxicodone) 20 mg Q6 PO Last administered on 01/26/17 05:41; Admin Dose 20 MG; Start 01/23/17 at 12:00 Vitamin B Complex/ Vitamin C (Berocca) 1 cap DAILY PO Last administered on 09:21; Admin Dose 1 CAP; Start 01/23/17 at 15:00 Hydromorphone HCl (Dilaudid) 1 mg Q3H PRN IV SEVERE PAIN Last administered on 16:02; Admin Dose 1 MG; Start 01/23/17 at 21:00 Simethicone 80 mg 80 mg Q6 PRN PO DISTENSION/GAS/BLOATING; Start 01/24/17 at 20: 00 Ertapenem/Sodium Chloride (Invanz/NS) 100 ml @ 200 mls/hr Q24H IVPB Last administered on 01/25/17 12:31; Admin Dose 200 MLS/HR; Start 01/25/17 at 13:00 Aspirin (Halfprin) 81 mg DAILY PO Last administered on 01/26/17 09:22; Admin Dose 81 MG; Start 01/26/17 at 09:00 Assessment/Plan Additional Assessment/Plan Rehab- diffuse SAH, s/p ventriculostomy Activities as tolerated HTN morbid obesity MILTON STATON MD Jan 26, 2017 10:37
[2017-01-26] MEDS ORDERED: HYDROmorphONE 2 MG/ML SYG IM STA (12:38)
--- NOTE | 2017-01-26 13:57 | RADRPT ---
PROCEDURE: Ultrasound guidance for PICC line placement by PICC line nurse. CLINICAL INDICATION: Central IV access TECHNIQUE: Ultrasound guidance was provided to PICC line nurse. Limited scanning of the upper ext remity veins is performed. COMPARISON: None FINDINGS: Limited scans of the upper extremity shows patent upper extremity veins. IMPRESSION: Ultrasound guidance provided to PICC line nurse for PICC line placement. RPTAT: QQ .Jose Mario MD, Date Time Electronically viewed and signed by .Jose Mario MD, on 01/26/2017 13:57 .L/
--- NOTE | 2017-01-26 14:03 | RADRPT ---
PROCEDURE: XR Chest. CLINICAL INDICATION: PICC line placement TECHNIQUE: Single frontal chest x-ray. COMPARISON: None. FINDINGS: The lungs are clear of acute infiltrates, edema, effusions, or masses. There is left arm PICC line i n place with tip in the superior vena cava. The cardiomediastinal silhouette is unremarkable. The o sseous structures are intact. The right costophrenic angle is excluded from image. IMPRESSION: No acute cardiopulmonary disease. Left arm PICC line with tip in the superior vena cava. RPTAT: QQ .Jose Mario MD, Date Time Electronically viewed and signed by .Jose Mario MD, on 01/26/2017 14:02 .L/
--- NOTE | 2017-01-26 14:22 | PN ---
Date/Time of Note Date/Time of Note DATE: 01/26/17 TIME: 14:21 Assessment/Plan VTE Prophylaxis VTE Prophylaxis Intervention: other Lines/Catheters IV Catheter Type (from Nrs): PICC Line Central line still needed: Yes Urinary Cath still in place: No Assessment/Plan Chief Complaint/Hosp Course cva htn esbl plan antibiotic pt ot Problems: Subjective 24 Hr Interval Summary Gastrointestinal: no complaints Genitourinary: no complaints Exam/Review of Systems Vital Signs Vitals Vital Signs Date Time Temp Pulse Resp B/P Pulse Ox O2 Delivery O2 Flow Rate FiO2 01/25/17 19:49 98.9 99 18 114/57 99 01/24/17 20:00 Room Air Intake and Output 01/25/17 01/25/17 01/26/17 15:00 23:00 07:00 Intake Total 550 ml 870 ml 480 ml Output Total 450 ml 400 ml Balance 100 ml 470 ml 480 ml Exam Respiratory: clear to auscultation Cardiovascular: regular rate and rhythm Gastrointestinal: soft Results Result Diagram: 01/25/17 0620 01/25/17 0620 Medications Medications Current Medications Nimodipine 60 mg 60 mg Q4 PO Last administered on 01/26/17 09:32; Admin Dose 60 MG; Start 01/23/17 at 01:00; Stop 01/26/17 at 23:59 Sodium Chloride (NS) 1,000 ml @ 20 mls/hr Q24H IV Last administered on 00:54; Admin Dose 20 MLS/HR; Start 01/23/17 at 00:30 Enoxaparin Sodium (Lovenox) 40 mg DAILY SC Last administered on 01/26/17 09:26 ; Admin Dose 40 MG; Start 01/23/17 at 09:00 Magnesium Oxide (Mag-Ox 400) 400 mg BID PO ; Start 01/27/17 at 09:00 Ondansetron HCl (Zofran Inj) 4 mg Q8H PRN IV NAUSEA AND/OR VOMITING; Start 01/23 at 00:00 Docusate Sodium (Colace) 100 mg BID PO Last administered on 01/26/17 09:22; Admin Dose 100 MG; Start 01/23/17 at 09:00 Magnesium Hydroxide (Milk Of Mag) 30 ml Q6H PRN PO CONSTIPATION; Start 01/23/17 at 00:00 Lactulose (Enulose) 20 gm BID PRN PO CONSTIPATION; Start 01/23/17 at 00:00 Bisacodyl (Dulcolax Supp) 10 mg Q24H PRN [place] CONSTIPATION; Start 01/23/17 at 00: 00 Polyethylene Glycol (Miralax) 17 gm DAILY PRN PO CONSTIPATION; Start 01/23/17 at 00:00 Famotidine (Pepcid) 20 mg BID PO Last administered on 01/26/17 09:22; Admin Dose 20 MG; Start 01/23/17 at 09:00 Senna (Senokot) 1 tab BID PO Last administered on 01/26/17 09:22; Admin Dose 1 TAB; Start 01/23/17 at 09:00 Acetaminophen (Tylenol Tab) 650 mg Q6H PRN PO ELEVATED TEMPERATURE; Start at 00:00 Topiramate (Topamax) 25 mg BID PO Last administered on 01/26/17 09:21; Admin Dose 25 MG; Start 01/23/17 at 09:00 Oxycodone HCl (Roxicodone) 20 mg Q6 PO Last administered on 01/26/17 05:41; Admin Dose 20 MG; Start 01/23/17 at 12:00 Vitamin B Complex/ Vitamin C (Berocca) 1 cap DAILY PO Last administered on 09:21; Admin Dose 1 CAP; Start 01/23/17 at 15:00 Hydromorphone HCl (Dilaudid) 1 mg Q3H PRN IV SEVERE PAIN Last administered on 16:02; Admin Dose 1 MG; Start 01/23/17 at 21:00 Simethicone 80 mg 80 mg Q6 PRN PO DISTENSION/GAS/BLOATING; Start 01/24/17 at 20: 00 Ertapenem/Sodium Chloride (Invanz/NS) 100 ml @ 200 mls/hr Q24H IVPB Last administered on 01/25/17 12:31; Admin Dose 200 MLS/HR; Start 01/25/17 at 13:00 Aspirin (Halfprin) 81 mg DAILY PO Last administered on 01/26/17 09:22; Admin Dose 81 MG; Start 01/26/17 at 09:00 EVERETTE SIDHU MD Jan 26, 2017 14:22
[2017-01-26 14:30] VITALS: BP 132/62; RESP 19
[2017-01-26] MEDS: HYDROmorphONE 1 MG/ML SYG IV PRN ×2 (14:35→17:41)
[2017-01-26] MEDS: ERTAPENEM SODIUM 1 GM in SOD CHLORIDE 0.9% 100 ML IVPB SCH (15:00)
[2017-01-26 16:00] VITALS: BP 125/58; PULSE 72; RESP 18
[2017-01-26 17:00] VITALS: BP 101/55; PULSE 80; RESP 18
[2017-01-26 20:10] VITALS: BP 125/65; PULSE 81; RESP 18
[2017-01-27] MEDS: oxyCODONE 5 MG TAB PO SCH ×3 (05:42→18:37)
[2017-01-27 07:30] VITALS: BP 117/67; RESP 18
[2017-01-27] MEDS: HYDROmorphONE 1 MG/ML SYG IV PRN ×5 (07:59→19:31)
[2017-01-27] MEDS: FAMOTIDINE 20 MG TAB PO SCH ×2 (09:38→20:48)
[2017-01-27] MEDS: DOCUSATE SODIUM 100 MG CAP PO SCH ×2 (09:38→20:51)
[2017-01-27] MEDS: ENOXAPARIN 40 MG/0.4 ML SYG SC SCH (09:38)
[2017-01-27] MEDS: ASPIRIN (EC) 81 MG TAB PO SCH (09:38)
[2017-01-27] MEDS: VITAMIN B COMPLEX/VIT C CAP PO SCH (09:44)
[2017-01-27] MEDS: MAGNESIUM OXIDE 400 MG TAB PO SCH ×2 (09:44→20:48)
[2017-01-27] MEDS: SENNA TAB PO SCH ×2 (09:45→20:50)
[2017-01-27] MEDS: TOPIRAMATE 25 MG TAB PO SCH ×2 (09:45→20:48)
[2017-01-27] MEDS ORDERED: SOD CHLORIDE 0.9% 100 ML ONE (09:55)
--- NOTE | 2017-01-27 12:02 | CONS ---
Date/Time of Note Date/Time of Note DATE: 01/27/17 TIME: 12:02 Consult Date/Type/Reason Admit Date/Time January 22, 2017 at 22:10 Type of Consultation: Neurology Ordering Provider: EVERETTE SIDHU MD Objective Vital Signs Date Time Temp Pulse Resp B/P Pulse Ox O2 Delivery O2 Flow Rate FiO2 01/27/17 07:30 97.8 77 18 117/67 96 01/26/17 20:10 Room Air Intake and Output 01/26/17 01/26/17 01/27/17 15:00 23:00 07:00 Intake Total 400 ml Balance 400 ml INTERDISCIPLINARY TEAM CONFERENCE BOWEL- Cont BLADDER-Cont SKIN- intact OT- DRESSING-min BATHING-min TOILETING-min PT- BED MOBILITY-min TRANSFERS-min AMBULATION-min 150 feet SPEECH- COGNITION-min A/P- Interdisciplinary team conference held today. Please see interdisciplinary sheet. Working toward d.c. on 02/05 with post discharge follow up of physical therapy, occupational therapy. Results/Medications Result Diagram: 01/25/1761901/25/17 0620 Medications Current Medications Enoxaparin Sodium (Lovenox) 40 mg DAILY SC Last administered on 01/27/17 09:38 ; Admin Dose 40 MG; Start 01/23/17 at 09:00 Magnesium Oxide (Mag-Ox 400) 400 mg BID PO Last administered on 01/27/17 09:44 ; Admin Dose 400 MG; Start 01/27/17 at 09:00 Ondansetron HCl (Zofran Inj) 4 mg Q8H PRN IV NAUSEA AND/OR VOMITING; Start 01/23 at 00:00 Docusate Sodium (Colace) 100 mg BID PO Last administered on 01/27/17 09:38; Admin Dose 100 MG; Start 01/23/17 at 09:00 Magnesium Hydroxide (Milk Of Mag) 30 ml Q6H PRN PO CONSTIPATION; Start 01/23/17 at 00:00 Lactulose (Enulose) 20 gm BID PRN PO CONSTIPATION; Start 01/23/17 at 00:00 Bisacodyl (Dulcolax Supp) 10 mg Q24H PRN IN CONSTIPATION; Start 01/23/17 at 00: 00 Polyethylene Glycol (Miralax) 17 gm DAILY PRN PO CONSTIPATION; Start 01/23/17 at 00:00 Famotidine (Pepcid) 20 mg BID PO Last administered on 01/27/17 09:38; Admin Dose 20 MG; Start 01/23/17 at 09:00 Senna (Senokot) 1 tab BID PO Last administered on 01/27/17 09:45; Admin Dose 1 TAB; Start 01/23/17 at 09:00 Acetaminophen (Tylenol Tab) 650 mg Q6H PRN PO ELEVATED TEMPERATURE; Start at 00:00 Topiramate (Topamax) 25 mg BID PO Last administered on 01/27/17 09:45; Admin Dose 25 MG; Start 01/23/17 at 09:00 Oxycodone HCl (Roxicodone) 20 mg Q6 PO Last administered on 01/27/17 05:42; Admin Dose 20 MG; Start 01/23/17 at 12:00 Vitamin B Complex/ Vitamin C (Berocca) 1 cap DAILY PO Last administered on 09:44; Admin Dose 1 CAP; Start 01/23/17 at 15:00 Hydromorphone HCl (Dilaudid) 1 mg Q3H PRN IV SEVERE PAIN Last administered on 11:04; Admin Dose 1 MG; Start 01/23/17 at 21:00 Simethicone 80 mg 80 mg Q6 PRN PO DISTENSION/GAS/BLOATING; Start 01/24/17 at 20: 00 Ertapenem/Sodium Chloride (Invanz/NS) 100 ml @ 200 mls/hr Q24H IVPB Last administered on 01/26/17 15:00; Admin Dose 200 MLS/HR; Start 01/25/17 at 13:00 Aspirin (Halfprin) 81 mg DAILY PO Last administered on 01/27/17 09:38; Admin Dose 81 MG; Start 01/26/17 at 09:00 IV Flush (NS 10 ml) 10 ml PRN PRN IV IV PROTOCOL Last administered on 01/27/17 05:42; Admin Dose 10 ML; Start 01/26/17 at 14:30 MILTON STATON MD Jan 27, 2017 12:02 MILTON STATON MD Jan 27, 2017 12:02
--- NOTE | 2017-01-27 13:31 | CONS ---
Date/Time of Note Date/Time of Note DATE: 01/27/17 TIME: 13:28 Consult Date/Type/Reason Admit Date/Time January 22, 2017 at 22:10 Initial Consult Date 01/25/17 Type of Consultation: Neurology Reason for Consultation diplopia IVH s/p SANITARIAN shunt Ordering Provider: EVERETTE SIDHU MD Subjective continues to have diplopia complains of memory loss MRI and MRA pending Objective Vital Signs Date Time Temp Pulse Resp B/P Pulse Ox O2 Delivery O2 Flow Rate FiO2 01/27/17 07:30 97.8 77 18 117/67 96 01/26/17 20:10 Room Air Intake and Output 01/26/17 01/26/17 01/27/17 15:00 23:00 07:00 Intake Total 400 ml Balance 400 ml Exam Exam Constitutional: alert, oriented, well developed Psych: nl mood/affect, no complaints Head: atraumatic, normocephalic Eyes: EOMI, nl conjunctiva, nl lids, nl sclera ENMT: mucosa pink and moist, nl external ears & nose, nl lips & teeth, nl nasal mucosa & septum Neck: non-tender, supple Respiratory: clear to auscultation, normal air movement Cardiovascular: nl pulses, regular rate and rhythm Gastrointestinal: nl liver, spleen, non-tender, soft Neurological: other (Diplopia due to weakness of bilateral lateral rectus which are supplied by 6th cranial nerve otherwise nonfocal exam) left eye in patch Skin: nl turgor Lymph: nl lymph nodes Results/Medications Result Diagram: 01/25/17 0620 01/25/17 0620 Medications Current Medications Enoxaparin Sodium (Lovenox) 40 mg DAILY SC Last administered on 01/27/17 09:38 ; Admin Dose 40 MG; Start 01/23/17 at 09:00 Magnesium Oxide (Mag-Ox 400) 400 mg BID PO Last administered on 01/27/17 09:44 ; Admin Dose 400 MG; Start 01/27/17 at 09:00 Ondansetron HCl (Zofran Inj) 4 mg Q8H PRN IV NAUSEA AND/OR VOMITING; Start 01/23 at 00:00 Docusate Sodium (Colace) 100 mg BID PO Last administered on 01/27/17 09:38; Admin Dose 100 MG; Start 01/23/17 at 09:00 Magnesium Hydroxide (Milk Of Mag) 30 ml Q6H PRN PO CONSTIPATION; Start 01/23/17 at 00:00 Lactulose (Enulose) 20 gm BID PRN PO CONSTIPATION; Start 01/23/17 at 00:00 Bisacodyl (Dulcolax Supp) 10 mg Q24H PRN [place] CONSTIPATION; Start 01/23/17 at 00: 00 Polyethylene Glycol (Miralax) 17 gm DAILY PRN PO CONSTIPATION; Start 01/23/17 at 00:00 Famotidine (Pepcid) 20 mg BID PO Last administered on 01/27/17 09:38; Admin Dose 20 MG; Start 01/23/17 at 09:00 Senna (Senokot) 1 tab BID PO Last administered on 01/27/17 09:45; Admin Dose 1 TAB; Start 01/23/17 at 09:00 Acetaminophen (Tylenol Tab) 650 mg Q6H PRN PO ELEVATED TEMPERATURE; Start at 00:00 Topiramate (Topamax) 25 mg BID PO Last administered on 01/27/17 09:45; Admin Dose 25 MG; Start 01/23/17 at 09:00 Oxycodone HCl (Roxicodone) 20 mg Q6 PO Last administered on 01/27/17 12:31; Admin Dose 20 MG; Start 01/23/17 at 12:00 Vitamin B Complex/ Vitamin C (Berocca) 1 cap DAILY PO Last administered on 09:44; Admin Dose 1 CAP; Start 01/23/17 at 15:00 Hydromorphone HCl (Dilaudid) 1 mg Q3H PRN IV SEVERE PAIN Last administered on 11:04; Admin Dose 1 MG; Start 01/23/17 at 21:00 Simethicone 80 mg 80 mg Q6 PRN PO DISTENSION/GAS/BLOATING; Start 01/24/17 at 20: 00 Ertapenem/Sodium Chloride (Invanz/NS) 100 ml @ 200 mls/hr Q24H IVPB Last administered on 01/26/17 15:00; Admin Dose 200 MLS/HR; Start 01/25/17 at 13:00 Aspirin (Halfprin) 81 mg DAILY PO Last administered on 01/27/17 09:38; Admin Dose 81 MG; Start 01/26/17 at 09:00 IV Flush (NS 10 ml) 10 ml PRN PRN IV IV PROTOCOL Last administered on 01/27/17t 05:42; Admin Dose 10 ML; Start 01/26/17 at 14:30 Assessment/Plan Chief Complaint/Hosp Course 41 year old male with hypertension and moderate obesity was initially admitted with sudden onset of headache and left facial droop. He was also seen to be having slurring speech. A CT scan of the brain showed subarachnoid hemorrhage and intraventricular hemorrhage and his initial blood pressure was more than 200 systolic. He was treated with Cardene and mannitol. He also was seen by neurosurgery and underwent a ventriculostomy placement. CT angiogram was unremarkable. Repeat CT scan of the brain showed vasospasm. He is currently in rehab and has been reporting double vision for the last few days. A CT scan of the brain showed small right bur hole placement with linear encephalomalacia in the right frontal lobes, nothing acute. 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 Would like to rule out brainstem stroke, MRI and MRA pending. Plan 1 MRI of the brain and MRA pending 2 start on aspirin 81 mg p.o. daily 3 we will follow w further recommendations once imaging completed Problems: POOL SUNSHINE MD Jan 27, 2017 13:31
[2017-01-27] MEDS: ERTAPENEM SODIUM 1 GM in SOD CHLORIDE 0.9% 100 ML IVPB SCH (13:57)
--- NOTE | 2017-01-27 18:54 | PN ---
Date/Time of Note Date/Time of Note DATE: 01/27/17 TIME: 18:53 Assessment/Plan VTE Prophylaxis VTE Prophylaxis Intervention: other Lines/Catheters IV Catheter Type (from Nrs): PICC Line Central line still needed: Yes Urinary Cath still in place: No Assessment/Plan Chief Complaint/Hosp Course cva htn esbl plan antibiotic pt ot Problems: Subjective 24 Hr Interval Summary Respiratory: no complaints Cardiovascular: no complaints Exam/Review of Systems Vital Signs Vitals Vital Signs Date Time Temp Pulse Resp B/P Pulse Ox O2 Delivery O2 Flow Rate FiO2 01/27/17 07:30 97.8 77 18 117/67 96 01/26/17 20:10 Room Air Intake and Output 01/26/17 01/26/17 01/27/17 15:00 23:00 07:00 Intake Total 400 ml Balance 400 ml Exam Neck: supple Respiratory: clear to auscultation Cardiovascular: regular rate and rhythm Results Result Diagram: 01/25/17 0601/25/17 0620 Medications Medications Current Medications Enoxaparin Sodium (Lovenox) 40 mg DAILY SC Last administered on 01/27/17 09:38 ; Admin Dose 40 MG; Start 01/23/17 at 09:00 Magnesium Oxide (Mag-Ox 400) 400 mg BID PO Last administered on 01/27/17 09:44 ; Admin Dose 400 MG; Start 01/27/17 at 09:00 Ondansetron HCl (Zofran Inj) 4 mg Q8H PRN IV NAUSEA AND/OR VOMITING; Start 01/23 at 00:00 Docusate Sodium (Colace) 100 mg BID PO Last administered on 01/27/17 09:38; Admin Dose 100 MG; Start 01/23/17 at 09:00 Magnesium Hydroxide (Milk Of Mag) 30 ml Q6H PRN PO CONSTIPATION; Start 01/23/17 at 00:00 Lactulose (Enulose) 20 gm BID PRN PO CONSTIPATION; Start 01/23/17 at 00:00 Bisacodyl (Dulcolax Supp) 10 mg Q24H PRN [place] CONSTIPATION; Start 01/23/17 at 00: 00 Polyethylene Glycol (Miralax) 17 gm DAILY PRN PO CONSTIPATION; Start 01/23/17 at 00:00 Famotidine (Pepcid) 20 mg BID PO Last administered on 01/27/17 09:38; Admin Dose 20 MG; Start 01/23/17 at 09:00 Senna (Senokot) 1 tab BID PO Last administered on 01/27/17 09:45; Admin Dose 1 TAB; Start 01/23/17 at 09:00 Acetaminophen (Tylenol Tab) 650 mg Q6H PRN PO ELEVATED TEMPERATURE; Start at 00:00 Topiramate (Topamax) 25 mg BID PO Last administered on 01/27/17 09:45; Admin Dose 25 MG; Start 01/23/17 at 09:00 Oxycodone HCl (Roxicodone) 20 mg Q6 PO Last administered on 01/27/17 18:37; Admin Dose 20 MG; Start 01/23/17 at 12:00 Vitamin B Complex/ Vitamin C (Berocca) 1 cap DAILY PO Last administered on 09:44; Admin Dose 1 CAP; Start 01/23/17 at 15:00 Hydromorphone HCl (Dilaudid) 1 mg Q3H PRN IV SEVERE PAIN Last administered on 16:59; Admin Dose 1 MG; Start 01/23/17 at 21:00 Simethicone 80 mg 80 mg Q6 PRN PO DISTENSION/GAS/BLOATING; Start 01/24/17 at 20: 00 Ertapenem/Sodium Chloride (Invanz/NS) 100 ml @ 200 mls/hr Q24H IVPB Last administered on 01/27/17 13:57; Admin Dose 200 MLS/HR; Start 01/25/17 at 13:00 Aspirin (Halfprin) 81 mg DAILY PO Last administered on 01/27/17 09:38; Admin Dose 81 MG; Start 01/26/17 at 09:00 IV Flush (NS 10 ml) 10 ml PRN PRN IV IV PROTOCOL Last administered on 01/27/17 05:42; Admin Dose 10 ML; Start 01/26/17 at 14:30 EVERETTE SIDHU MD Jan 27, 2017 18:54
[2017-01-27 19:52] VITALS: BP 120/68; RESP 18
[2017-01-28] MEDS: oxyCODONE 5 MG TAB PO SCH ×4 (06:03→17:45)
[2017-01-28 08:20] VITALS: BP 119/56; PULSE 75; RESP 18
[2017-01-28] MEDS: ENOXAPARIN 40 MG/0.4 ML SYG SC SCH (08:40)
[2017-01-28] MEDS: DOCUSATE SODIUM 100 MG CAP PO SCH ×2 (08:40→20:38)
[2017-01-28] MEDS: ASPIRIN (EC) 81 MG TAB PO SCH (08:41)
[2017-01-28] MEDS: VITAMIN B COMPLEX/VIT C CAP PO SCH (08:41)
[2017-01-28] MEDS: SENNA TAB PO SCH ×2 (08:41→20:38)
[2017-01-28] MEDS: MAGNESIUM OXIDE 400 MG TAB PO SCH ×2 (08:41→20:38)
[2017-01-28] MEDS: TOPIRAMATE 25 MG TAB PO SCH ×2 (08:41→20:38)
[2017-01-28] MEDS: FAMOTIDINE 20 MG TAB PO SCH ×2 (08:41→20:38)
--- NOTE | 2017-01-28 12:27 | CONS ---
Date/Time of Note Date/Time of Note DATE: 01/28/17 TIME: 12:27 Consult Date/Type/Reason Admit Date/Time January 22, 2017 at 22:10 Type of Consultation: Neurology Ordering Provider: EVERETTE SIDHU MD Subjective comfortable Objective pulm-cta min ambulation Vital Signs Date Time Temp Pulse Resp B/P Pulse Ox O2 Delivery O2 Flow Rate FiO2 01/27/17 19:52 98.5 80 18 120/68 95 01/26/17 20:10 Room Air Intake and Output 01/27/17 01/27/17 01/28/17 15:00 23:00 07:00 Intake Total 680 ml Balance 680 ml Results/Medications Result Diagram: 01/25/1761901/25/17 06 Medications Current Medications Enoxaparin Sodium (Lovenox) 40 mg DAILY SC Last administered on 01/28/17 08:40 ; Admin Dose 40 MG; Start 01/23/17 at 09:00 Magnesium Oxide (Mag-Ox 400) 400 mg BID PO Last administered on 01/28/17 08:41 ; Admin Dose 400 MG; Start 01/27/17 at 09:00 Ondansetron HCl (Zofran Inj) 4 mg Q8H PRN IV NAUSEA AND/OR VOMITING; Start 01/23 at 00:00 Docusate Sodium (Colace) 100 mg BID PO Last administered on 01/28/17 08:40; Admin Dose 100 MG; Start 01/23/17 at 09:00 Magnesium Hydroxide (Milk Of Mag) 30 ml Q6H PRN PO CONSTIPATION; Start 01/23/17 at 00:00 Lactulose (Enulose) 20 gm BID PRN PO CONSTIPATION; Start 01/23/17 at 00:00 Bisacodyl (Dulcolax Supp) 10 mg Q24H PRN [place] CONSTIPATION; Start 01/23/17 at 00: 00 Polyethylene Glycol (Miralax) 17 gm DAILY PRN PO CONSTIPATION; Start 01/23/17 at 00:00 Famotidine (Pepcid) 20 mg BID PO Last administered on 01/28/17 08:41; Admin Dose 20 MG; Start 01/23/17 at 09:00 Senna (Senokot) 1 tab BID PO Last administered on 01/28/17 08:41; Admin Dose 1 TAB; Start 01/23/17 at 09:00 Acetaminophen (Tylenol Tab) 650 mg Q6H PRN PO ELEVATED TEMPERATURE Last administered on 01/28/17 10:51; Admin Dose 650 MG; Start 01/23/17 at 00:00 Topiramate (Topamax) 25 mg BID PO Last administered on 01/28/17 08:41; Admin Dose 25 MG; Start 01/23/17 at 09:00 Oxycodone HCl (Roxicodone) 20 mg Q6 PO Last administered on 01/28/17 06:03; Admin Dose 20 MG; Start 01/23/17 at 12:00 Vitamin B Complex/ Vitamin C (Berocca) 1 cap DAILY PO Last administered on 08:41; Admin Dose 1 CAP; Start 01/23/17 at 15:00 Hydromorphone HCl (Dilaudid) 1 mg Q3H PRN IV SEVERE PAIN Last administered on 19:31; Admin Dose 1 MG; Start 01/23/17 at 21:00 Simethicone 80 mg 80 mg Q6 PRN PO DISTENSION/GAS/BLOATING; Start 01/24/17 at 20: 00 Ertapenem/Sodium Chloride (Invanz/NS) 100 ml @ 200 mls/hr Q24H IVPB Last administered on 01/27/17 13:57; Admin Dose 200 MLS/HR; Start 01/25/17 at 13:00 Aspirin (Halfprin) 81 mg DAILY PO Last administered on 01/28/17 08:41; Admin Dose 81 MG; Start 01/26/17 at 09:00 IV Flush (NS 10 ml) 10 ml PRN PRN IV IV PROTOCOL Last administered on 01/28/17 06:03; Admin Dose 10 ML; Start 01/26/17 at 14:30 Assessment/Plan Additional Assessment/Plan Rehab- diffuse SAH, s/p ventriculostomy Continue rehab activities HTN morbid obesity MILTON STATON MD Jan 28, 2017 12:27
[2017-01-28] MEDS: ERTAPENEM SODIUM 1 GM in SOD CHLORIDE 0.9% 100 ML IVPB SCH (12:41)
[2017-01-28 12:58] LABS: CHOL/HDL RATIO 5.7 RATIO
--- NOTE | 2017-01-28 13:53 | RADRPT ---
PROCEDURE: CT Brain without contrast. CLINICAL INDICATION: Neurologic deficit TECHNIQUE: A CT of the brain was performed on multidetector high-resolution CT scanner utilizing a xial sections from the skull base through the vertex without contrast. One or more of the following dose reduction techniques were used: Automated exposure control, Adjustment of the mA and/or kV acc ording to patient size, and/or use of iterative reconstruction technique. DOSE: CTDI = 45 mGy and the DLP = 720 mGy-cm. COMPARISON: Head CT 01/24/2017 FINDINGS: Old right frontal ventriculostomy tract. No acute intracranial hemorrhage, significant mass effect or midline shift. The justin-white different iation is grossly preserved. The ventricles are stable size with generalized volume loss noted. No significant opacification of the visualized paranasal sinuses or mastoids. IMPRESSION: No significant interval change. No acute intracranial hemorrhage or mass effect. RPTAT: AA .Norman Brush MD, MD Date Time Electronically viewed and signed by .Norman Brush MD, on 01/28/2017 13:53 .T/
[2017-01-28 19:49] VITALS: BP 105/53; RESP 18
--- NOTE | 2017-01-28 22:43 | PN ---
Date/Time of Note Date/Time of Note DATE: 01/28/17 TIME: 22:42 Assessment/Plan VTE Prophylaxis VTE Prophylaxis Intervention: other Lines/Catheters IV Catheter Type (from Nrsg): PICC Line Central line still needed: Yes Urinary Cath still in place: No Reason Cath still needed: other (indicate) Assessment/Plan Chief Complaint/Hosp Course cva htn esbl plan antibiotic pt ot perneuro Problems: Subjective 24 Hr Interval Summary Cardiovascular: no complaints Gastrointestinal: no complaints Exam/Review of Systems Vital Signs Vitals Vital Signs Date Time Temp Pulse Resp B/P Pulse Ox O2 Delivery O2 Flow Rate FiO2 01/28/17 19:49 97.9 70 18 105/53 98 01/28/17 08:20 Room Air Intake and Output 01/27/17 01/27/17 01/28/17 15:00 23:00 07:00 Intake Total 680 ml Balance 680 ml Exam Neck: supple Respiratory: clear to auscultation Cardiovascular: regular rate and rhythm Gastrointestinal: soft Results Result Diagram: 01/25/17 0620 01/25/17 0620 Results 24 hrs Laboratory Tests Test 01/28/17 12:24 Triglycerides Level 204 H Cholesterol Level 133 LDL Cholesterol, Calculated 69 HDL Cholesterol 23 L Cholesterol/HDL Ratio 5.7 Medications Medications Current Medications Enoxaparin Sodium (Lovenox) 40 mg DAILY SC Last administered on 01/28/17 08:40 ; Admin Dose 40 MG; Start 01/23/17 at 09:00 Magnesium Oxide (Mag-Ox 400) 400 mg BID PO Last administered on 01/28/17 20:38 ; Admin Dose 400 MG; Start 01/27/17 at 09:00 Ondansetron HCl (Zofran Inj) 4 mg Q8H PRN IV NAUSEA AND/OR VOMITING; Start 01/23 at 00:00 Docusate Sodium (Colace) 100 mg BID PO Last administered on 01/28/17 20:38; Admin Dose 100 MG; Start 01/23/17 at 09:00 Magnesium Hydroxide (Milk Of Mag) 30 ml Q6H PRN PO CONSTIPATION; Start 01/23/17 at 00:00 Lactulose (Enulose) 20 gm BID PRN PO CONSTIPATION; Start 01/23/17 at 00:00 Bisacodyl (Dulcolax Supp) 10 mg Q24H PRN [place] CONSTIPATION; Start 01/23/17 at 00: 00 Polyethylene Glycol (Miralax) 17 gm DAILY PRN PO CONSTIPATION; Start 01/23/17 at 00:00 Famotidine (Pepcid) 20 mg BID PO Last administered on 01/28/17 20:38; Admin Dose 20 MG; Start 01/23/17 at 09:00 Senna (Senokot) 1 tab BID PO Last administered on 01/28/17 20:38; Admin Dose 1 TAB; Start 01/23/17 at 09:00 Acetaminophen (Tylenol Tab) 650 mg Q6H PRN PO ELEVATED TEMPERATURE Last administered on 01/28/17 10:51; Admin Dose 650 MG; Start 01/23/17 at 00:00 Topiramate (Topamax) 25 mg BID PO Last administered on 01/28/17 20:38; Admin Dose 25 MG; Start 01/23/17 at 09:00 Oxycodone HCl (Roxicodone) 20 mg Q6 PO Last administered on 01/28/17 17:45; Admin Dose 20 MG; Start 01/23/17 at 12:00 Vitamin B Complex/ Vitamin C (Berocca) 1 cap DAILY PO Last administered on 08:41; Admin Dose 1 CAP; Start 01/23/17 at 15:00 Hydromorphone HCl (Dilaudid) 1 mg Q3H PRN IV SEVERE PAIN Last administered on 19:31; Admin Dose 1 MG; Start 01/23/17 at 21:00 Simethicone 80 mg 80 mg Q6 PRN PO DISTENSION/GAS/BLOATING; Start 01/24/17 at 20: 00 Ertapenem/Sodium Chloride (Invanz/NS) 100 ml @ 200 mls/hr Q24H IVPB Last administered on 01/28/17 12:41; Admin Dose 200 MLS/HR; Start 01/25/17 at 13:00 Aspirin (Halfprin) 81 mg DAILY PO Last administered on 01/28/17 08:41; Admin Dose 81 MG; Start 01/26/17 at 09:00 IV Flush (NS 10 ml) 10 ml PRN PRN IV IV PROTOCOL Last administered on 01/28/17 06:03; Admin Dose 10 ML; Start 01/26/17 at 14:30 EVERETTE SIDHU MD Jan 28, 2017 22:43
[2017-01-29] MEDS: oxyCODONE 5 MG TAB PO SCH ×4 (06:11→18:16)
[2017-01-29 08:00] VITALS: BP 101/53; RESP 18
[2017-01-29] MEDS: ENOXAPARIN 40 MG/0.4 ML SYG SC SCH (09:27)
[2017-01-29] MEDS: DOCUSATE SODIUM 100 MG CAP PO SCH ×2 (09:28→20:27)
[2017-01-29] MEDS: ASPIRIN (EC) 81 MG TAB PO SCH (09:28)
[2017-01-29] MEDS: FAMOTIDINE 20 MG TAB PO SCH ×2 (09:28→20:27)
[2017-01-29] MEDS: SENNA TAB PO SCH ×2 (09:28→20:27)
[2017-01-29] MEDS: MAGNESIUM OXIDE 400 MG TAB PO SCH ×2 (09:28→20:27)
[2017-01-29] MEDS: VITAMIN B COMPLEX/VIT C CAP PO SCH (09:28)
[2017-01-29] MEDS: TOPIRAMATE 25 MG TAB PO SCH ×2 (09:28→20:27)
--- NOTE | 2017-01-29 11:05 | CONS ---
Date/Time of Note Date/Time of Note DATE: 01/29/17 TIME: 11:04 Consult Date/Type/Reason Admit Date/Time January 22, 2017 at 22:10 Type of Consultation: Neurology Ordering Provider: EVERETTE SIDHU MD Subjective Feeling much better Objective pulm-cta abd-soft cga/mn ambulation Vital Signs Date Time Temp Pulse Resp B/P Pulse Ox O2 Delivery O2 Flow Rate FiO2 01/29/17 08:00 97.9 76 18 101/53 97 01/28/17 08:20 Room Air Intake and Output 01/28/17 01/28/17 01/29/17 15:00 23:00 07:00 Intake Total 750 ml 500 ml Balance 750 ml 500 ml Results/Medications Result Diagram: 01/25/1761901/25/1720 Results 24 hrs Laboratory Tests Test 01/28/17 12:24 Triglycerides Level 204 H Cholesterol Level 133 LDL Cholesterol, Calculated 69 HDL Cholesterol 23 L Cholesterol/HDL Ratio 5.7 Medications Current Medications Enoxaparin Sodium (Lovenox) 40 mg DAILY SC Last administered on 01/29/17 09:27 ; Admin Dose 40 MG; Start 01/23/17 at 09:00 Magnesium Oxide (Mag-Ox 400) 400 mg BID PO Last administered on 01/29/17 09:28 ; Admin Dose 400 MG; Start 01/27/17 at 09:00 Ondansetron HCl (Zofran Inj) 4 mg Q8H PRN IV NAUSEA AND/OR VOMITING; Start 01/23 at 00:00 Docusate Sodium (Colace) 100 mg BID PO Last administered on 01/29/17 09:28; Admin Dose 100 MG; Start 01/23/17 at 09:00 Magnesium Hydroxide (Milk Of Mag) 30 ml Q6H PRN PO CONSTIPATION; Start 01/23/17 at 00:00 Lactulose (Enulose) 20 gm BID PRN PO CONSTIPATION; Start 01/23/17 at 00:00 Bisacodyl (Dulcolax Supp) 10 mg Q24H PRN [place] CONSTIPATION; Start 01/23/17 at 00: 00 Polyethylene Glycol (Miralax) 17 gm DAILY PRN PO CONSTIPATION; Start 01/23/17 at 00:00 Famotidine (Pepcid) 20 mg BID PO Last administered on 01/29/17 09:28; Admin Dose 20 MG; Start 01/23/17 at 09:00 Senna (Senokot) 1 tab BID PO Last administered on 01/29/17 09:28; Admin Dose 1 TAB; Start 01/23/17 at 09:00 Acetaminophen (Tylenol Tab) 650 mg Q6H PRN PO ELEVATED TEMPERATURE Last administered on 01/28/17 10:51; Admin Dose 650 MG; Start 01/23/17 at 00:00 Topiramate (Topamax) 25 mg BID PO Last administered on 01/29/17 09:28; Admin Dose 25 MG; Start 01/23/17 at 09:00 Oxycodone HCl (Roxicodone) 20 mg Q6 PO Last administered on 01/29/17 06:11; Admin Dose 20 MG; Start 01/23/17 at 12:00 Vitamin B Complex/ Vitamin C (Berocca) 1 cap DAILY PO Last administered on 09:28; Admin Dose 1 CAP; Start 01/23/17 at 15:00 Hydromorphone HCl (Dilaudid) 1 mg Q3H PRN IV SEVERE PAIN Last administered on 19:31; Admin Dose 1 MG; Start 01/23/17 at 21:00 Simethicone 80 mg 80 mg Q6 PRN PO DISTENSION/GAS/BLOATING; Start 01/24/17 at 20: 00 Ertapenem/Sodium Chloride (Invanz/NS) 100 ml @ 200 mls/hr Q24H IVPB Last administered on 01/28/17 12:41; Admin Dose 200 MLS/HR; Start 01/25/17 at 13:00 Aspirin (Halfprin) 81 mg DAILY PO Last administered on 01/29/17 09:28; Admin Dose 81 MG; Start 01/26/17 at 09:00 IV Flush (NS 10 ml) 10 ml PRN PRN IV IV PROTOCOL Last administered on 01/28/17 06:03; Admin Dose 10 ML; Start 01/26/17 at 14:30 Assessment/Plan Additional Assessment/Plan Rehab- diffuse SAH, s/p ventriculostomy Continue rehab program HTN morbid obesity MILTON STATON MD Jan 29, 2017 11:05
--- NOTE | 2017-01-29 11:50 | CONS ---
Date/Time of Note Date/Time of Note DATE: 01/29/17 TIME: 11:46 Consult Date/Type/Reason Admit Date/Time January 22, 2017 at 22:10 Initial Consult Date 01/25/17 Type of Consultation: Neurology Reason for Consultation SAH s/p EVD and treatment at [facility] with diplopia and b/l 6th palsy Ordering Provider: EVERETTE SIDHU MD Subjective symptoms gradually improving he alternates a patch over each eye denies headaches no other new neurologic deficits Objective Vital Signs Date Time Temp Pulse Resp B/P Pulse Ox O2 Delivery O2 Flow Rate FiO2 01/29/17 08:00 97.9 76 18 101/53 97 01/28/17 08:20 Room Air Intake and Output 01/28/17 01/28/17 01/29/17 15:00 23:00 07:00 Intake Total 750 ml 500 ml Balance 750 ml 500 ml Exam Exam Constitutional: alert, oriented, well developed Psych: nl mood/affect, no complaints Head: atraumatic, normocephalic Eyes: EOMI, nl conjunctiva, nl lids, nl sclera ENMT: mucosa pink and moist, nl external ears & nose, nl lips & teeth, nl nasal mucosa & septum Neck: non-tender, supple Respiratory: clear to auscultation, normal air movement Cardiovascular: nl pulses, regular rate and rhythm Gastrointestinal: nl liver, spleen, non-tender, soft Neurological: other (Diplopia due to weakness of bilateral lateral rectus which are supplied by 6th cranial nerve otherwise nonfocal exam) left eye in patch Skin: nl turgor Lymph: nl lymph nodes Results/Medications Result Diagram: 01/25/1761901/25/17 0620 Results 24 hrs Laboratory Tests Test 01/28/17 12:24 Triglycerides Level 204 H Cholesterol Level 133 LDL Cholesterol, Calculated 69 HDL Cholesterol 23 L Cholesterol/HDL Ratio 5.7 Medications Current Medications Enoxaparin Sodium (Lovenox) 40 mg DAILY SC Last administered on 01/29/17 09:27 ; Admin Dose 40 MG; Start 01/23/17 at 09:00 Magnesium Oxide (Mag-Ox 400) 400 mg BID PO Last administered on 01/29/17 09:28 ; Admin Dose 400 MG; Start 01/27/17 at 09:00 Ondansetron HCl (Zofran Inj) 4 mg Q8H PRN IV NAUSEA AND/OR VOMITING; Start 01/23 at 00:00 Docusate Sodium (Colace) 100 mg BID PO Last administered on 01/29/17 09:28; Admin Dose 100 MG; Start 01/23/17 at 09:00 Magnesium Hydroxide (Milk Of Mag) 30 ml Q6H PRN PO CONSTIPATION; Start 01/23/17 at 00:00 Lactulose (Enulose) 20 gm BID PRN PO CONSTIPATION; Start 01/23/17 at 00:00 Bisacodyl (Dulcolax Supp) 10 mg Q24H PRN [place] CONSTIPATION; Start 01/23/17 at 00: 00 Polyethylene Glycol (Miralax) 17 gm DAILY PRN PO CONSTIPATION; Start 01/23/17 at 00:00 Famotidine (Pepcid) 20 mg BID PO Last administered on 01/29/17 09:28; Admin Dose 20 MG; Start 01/23/17 at 09:00 Senna (Senokot) 1 tab BID PO Last administered on 01/29/17 09:28; Admin Dose 1 TAB; Start 01/23/17 at 09:00 Acetaminophen (Tylenol Tab) 650 mg Q6H PRN PO ELEVATED TEMPERATURE Last administered on 01/28/17 10:51; Admin Dose 650 MG; Start 01/23/17 at 00:00 Topiramate (Topamax) 25 mg BID PO Last administered on 01/29/17 09:28; Admin Dose 25 MG; Start 01/23/17 at 09:00 Oxycodone HCl (Roxicodone) 20 mg Q6 PO Last administered on 01/29/17 06:11; Admin Dose 20 MG; Start 01/23/17 at 12:00 Vitamin B Complex/ Vitamin C (Berocca) 1 cap DAILY PO Last administered on 09:28; Admin Dose 1 CAP; Start 01/23/17 at 15:00 Hydromorphone HCl (Dilaudid) 1 mg Q3H PRN IV SEVERE PAIN Last administered on 19:31; Admin Dose 1 MG; Start 01/23/17 at 21:00 Simethicone 80 mg 80 mg Q6 PRN PO DISTENSION/GAS/BLOATING; Start 01/24/17 at 20: 00 Ertapenem/Sodium Chloride (Invanz/NS) 100 ml @ 200 mls/hr Q24H IVPB Last administered on 01/28/17 12:41; Admin Dose 200 MLS/HR; Start 01/25/17 at 13:00 Aspirin (Halfprin) 81 mg DAILY PO Last administered on 01/29/17 09:28; Admin Dose 81 MG; Start 01/26/17 at 09:00 IV Flush (NS 10 ml) 10 ml PRN PRN IV IV PROTOCOL Last administered on 01/28/17 06:03; Admin Dose 10 ML; Start 01/26/17 at 14:30 Assessment/Plan Chief Complaint/Hosp Course 41 year old male with hypertension and moderate obesity was initially admitted with sudden onset of headache and left facial droop. He was also seen to be having slurring speech. A CT scan of the brain showed subarachnoid hemorrhage and intraventricular hemorrhage and his initial blood pressure was more than 200 systolic. He was treated with Cardene and mannitol. He also was seen by neurosurgery and underwent a ventriculostomy placement. CT angiogram was unremarkable. Repeat CT scan of the brain showed vasospasm, he was treated with nimodipine for vasospasm. He is currently in rehab and has been reporting double vision for the last few days. A CT scan of the brain showed small right bur hole placement with linear encephalomalacia in the right frontal lobes, nothing acute. 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 Plan Patient unable to fit in MRI machine due to body habitus, a repeat Head CT was ordered that shows no new acute changes still has mild dilation of ventricles that may be producing his current symptoms of bilateral 6th palsy He requires follow up with [facility] and per review of notes he was planned to have a repeat cerebral angiogram should follow up for diagnostic cerebral angiogram to rule out possibility of underlying vascular lesion that precipitated spontaneous SAH will stop aspirin as there are no new signs of ischemic injury, may restart as outpatient if necessary maintain normotensive blood pressure, maintain euglycemia, weight loss dietary modification continue therapies and outpatient follow up with neurology will sign off, please reconsult as needed Problems: POOL SUNSHINE MD Jan 29, 2017 11:50
[2017-01-29] MEDS: ERTAPENEM SODIUM 1 GM in SOD CHLORIDE 0.9% 100 ML IVPB SCH (12:35)
[2017-01-29 20:14] VITALS: BP 107/57; RESP 18
--- NOTE | 2017-01-29 23:26 | PN ---
Date/Time of Note Date/Time of Note DATE: 01/29/17 TIME: 23:25 Assessment/Plan VTE Prophylaxis VTE Prophylaxis Intervention: other Lines/Catheters IV Catheter Type (from Nrsg): PICC Line Central line still needed: Yes Urinary Cath still in place: No Reason Cath still needed: other (indicate) Assessment/Plan Chief Complaint/Hosp Course cva htn esbl plan antibiotic pt ot per neuro Problems: Subjective 24 Hr Interval Summary Cardiovascular: no complaints Gastrointestinal: no complaints Exam/Review of Systems Vital Signs Vitals Vital Signs Date Time Temp Pulse Resp B/P Pulse Ox O2 Delivery O2 Flow Rate FiO2 01/29/17 20:14 98.3 89 18 107/57 95 01/28/17 08:20 Room Air Intake and Output 01/28/17 01/28/17 01/29/17 15:00 23:00 07:00 Intake Total 750 ml 500 ml Balance 750 ml 500 ml Exam Respiratory: clear to auscultation Cardiovascular: regular rate and rhythm Gastrointestinal: soft Results Result Diagram: 01/25/17 0620 01/25/17 0620 Medications Medications Current Medications Enoxaparin Sodium (Lovenox) 40 mg DAILY SC Last administered on 01/29/17 09:27 ; Admin Dose 40 MG; Start 01/23/17 at 09:00 Magnesium Oxide (Mag-Ox 400) 400 mg BID PO Last administered on 01/29/17 20:27 ; Admin Dose 400 MG; Start 01/27/17 at 09:00 Ondansetron HCl (Zofran Inj) 4 mg Q8H PRN IV NAUSEA AND/OR VOMITING; Start 01/23 at 00:00 Docusate Sodium (Colace) 100 mg BID PO Last administered on 01/29/17 20:27; Admin Dose 100 MG; Start 01/23/17 at 09:00 Magnesium Hydroxide (Milk Of Mag) 30 ml Q6H PRN PO CONSTIPATION; Start 01/23/17 at 00:00 Lactulose (Enulose) 20 gm BID PRN PO CONSTIPATION; Start 01/23/17 at 00:00 Bisacodyl (Dulcolax Supp) 10 mg Q24H PRN [place] CONSTIPATION; Start 01/23/17 at 00: 00 Polyethylene Glycol (Miralax) 17 gm DAILY PRN PO CONSTIPATION; Start 01/23/17 at 00:00 Famotidine (Pepcid) 20 mg BID PO Last administered on 01/29/17 20:27; Admin Dose 20 MG; Start 01/23/17 at 09:00 Senna (Senokot) 1 tab BID PO Last administered on 01/29/17 20:27; Admin Dose 1 TAB; Start 01/23/17 at 09:00 Acetaminophen (Tylenol Tab) 650 mg Q6H PRN PO ELEVATED TEMPERATURE Last administered on 01/28/17 10:51; Admin Dose 650 MG; Start 01/23/17 at 00:00 Topiramate (Topamax) 25 mg BID PO Last administered on 01/29/17 20:27; Admin Dose 25 MG; Start 01/23/17 at 09:00 Oxycodone HCl (Roxicodone) 20 mg Q6 PO Last administered on 01/29/17 18:16; Admin Dose 20 MG; Start 01/23/17 at 12:00 Vitamin B Complex/ Vitamin C (Berocca) 1 cap DAILY PO Last administered on 09:28; Admin Dose 1 CAP; Start 01/23/17 at 15:00 Hydromorphone HCl (Dilaudid) 1 mg Q3H PRN IV SEVERE PAIN Last administered on 19:31; Admin Dose 1 MG; Start 01/23/17 at 21:00 Simethicone 80 mg 80 mg Q6 PRN PO DISTENSION/GAS/BLOATING; Start 01/24/17 at 20: 00 Ertapenem/Sodium Chloride (Invanz/NS) 100 ml @ 200 mls/hr Q24H IVPB Last administered on 01/29/17 12:35; Admin Dose 200 MLS/HR; Start 01/25/17 at 13:00 IV Flush (NS 10 ml) 10 ml PRN PRN IV IV PROTOCOL Last administered on 01/28/17 06:03; Admin Dose 10 ML; Start 01/26/17 at 14:30 EVERETTE SIDHU MD Jan 29, 2017 23:26
[2017-01-30] MEDS: oxyCODONE 5 MG TAB PO SCH ×4 (06:11→18:00)
[2017-01-30] MEDS: HYDROmorphONE 1 MG/ML SYG IV PRN ×5 (07:18→18:29)
[2017-01-30 07:30] VITALS: BP 99/49; RESP 18
[2017-01-30] MEDS: TOPIRAMATE 25 MG TAB PO SCH ×2 (08:22→21:34)
[2017-01-30] MEDS: MAGNESIUM OXIDE 400 MG TAB PO SCH ×2 (08:22→21:34)
[2017-01-30] MEDS: VITAMIN B COMPLEX/VIT C CAP PO SCH (08:22)
[2017-01-30] MEDS: SENNA TAB PO SCH ×2 (08:22→21:34)
[2017-01-30] MEDS: DOCUSATE SODIUM 100 MG CAP PO SCH ×2 (08:22→21:34)
[2017-01-30] MEDS: FAMOTIDINE 20 MG TAB PO SCH ×2 (08:22→21:34)
[2017-01-30] MEDS: ENOXAPARIN 40 MG/0.4 ML SYG SC SCH (08:25)
--- NOTE | 2017-01-30 12:20 | CONS ---
Date/Time of Note Date/Time of Note DATE: 01/30/17 TIME: 12:20 Consult Date/Type/Reason Admit Date/Time January 22, 2017 at 22:10 Type of Consultation: Neurology Ordering Provider: EVERETTE SIDHU MD Objective pulm-cta abd-soft Vital Signs Date Time Temp Pulse Resp B/P Pulse Ox O2 Delivery O2 Flow Rate FiO2 01/30/17 07:30 98.4 79 18 99/49 98 01/28/17 08:20 Room Air Intake and Output 01/29/17 01/29/17 01/30/17 15:00 23:00 07:00 Intake Total 1200 ml 600 ml Output Total 400 ml Balance 1200 ml 600 ml -400 ml Results/Medications Medications Current Medications Enoxaparin Sodium (Lovenox) 40 mg DAILY SC Last administered on 01/30/17 08:25 ; Admin Dose 40 MG; Start 01/23/17 at 09:00 Magnesium Oxide (Mag-Ox 400) 400 mg BID PO Last administered on 01/30/17 08:22 ; Admin Dose 400 MG; Start 01/27/17 at 09:00 Ondansetron HCl (Zofran Inj) 4 mg Q8H PRN IV NAUSEA AND/OR VOMITING; Start 01/23 at 00:00 Docusate Sodium (Colace) 100 mg BID PO Last administered on 01/30/17 08:22; Admin Dose 100 MG; Start 01/23/17 at 09:00 Magnesium Hydroxide (Milk Of Mag) 30 ml Q6H PRN PO CONSTIPATION; Start 01/23/17 at 00:00 Lactulose (Enulose) 20 gm BID PRN PO CONSTIPATION; Start 01/23/17 at 00:00 Bisacodyl (Dulcolax Supp) 10 mg Q24H PRN [place] CONSTIPATION; Start 01/23/17 at 00: 00 Polyethylene Glycol (Miralax) 17 gm DAILY PRN PO CONSTIPATION; Start 01/23/17 at 00:00 Famotidine (Pepcid) 20 mg BID PO Last administered on 01/30/17 08:22; Admin Dose 20 MG; Start 01/23/17 at 09:00 Senna (Senokot) 1 tab BID PO Last administered on 01/30/17 08:22; Admin Dose 1 TAB; Start 01/23/17 at 09:00 Acetaminophen (Tylenol Tab) 650 mg Q6H PRN PO ELEVATED TEMPERATURE Last administered on 01/28/17 10:51; Admin Dose 650 MG; Start 01/23/17 at 00:00 Topiramate (Topamax) 25 mg BID PO Last administered on 01/30/17 08:22; Admin Dose 25 MG; Start 01/23/17 at 09:00 Oxycodone HCl (Roxicodone) 20 mg Q6 PO Last administered on 01/30/17 06:11; Admin Dose 20 MG; Start 01/23/17 at 12:00 Vitamin B Complex/ Vitamin C (Berocca) 1 cap DAILY PO Last administered on 08:22; Admin Dose 1 CAP; Start 01/23/17 at 15:00 Hydromorphone HCl (Dilaudid) 1 mg Q3H PRN IV SEVERE PAIN Last administered on 11:11; Admin Dose 1 MG; Start 01/23/17 at 21:00 Simethicone 80 mg 80 mg Q6 PRN PO DISTENSION/GAS/BLOATING; Start 01/24/17 at 20: 00 Ertapenem/Sodium Chloride (Invanz/NS) 100 ml @ 200 mls/hr Q24H IVPB Last administered on 01/29/17 12:35; Admin Dose 200 MLS/HR; Start 01/25/17 at 13:00 IV Flush (NS 10 ml) 10 ml PRN PRN IV IV PROTOCOL Last administered on 01/30/17 09:48; Admin Dose 10 ML; Start 01/26/17 at 14:30 Assessment/Plan Additional Assessment/Plan Rehab- diffuse SAH, s/p ventriculostomy Continue rehab program HTN morbid obesity MILTON STATON MD Jan 30, 2017 12:20
[2017-01-30] MEDS: ERTAPENEM SODIUM 1 GM in SOD CHLORIDE 0.9% 100 ML IVPB SCH (13:19)
--- NOTE | 2017-01-30 17:21 | PN ---
Date/Time of Note Date/Time of Note DATE: 01/30/17 TIME: 17:20 Assessment/Plan VTE Prophylaxis VTE Prophylaxis Intervention: other Lines/Catheters IV Catheter Type (from Nrsg): PICC Line Central line still needed: Yes Urinary Cath still in place: No Reason Cath still needed: other (indicate) Assessment/Plan Chief Complaint/Hosp Course cva htn esbl plan antibiotic pt ot per neuro Problems: Subjective 24 Hr Interval Summary Gastrointestinal: no complaints Genitourinary: no complaints Musculoskeletal: no complaints Exam/Review of Systems Vital Signs Vitals Vital Signs Date Time Temp Pulse Resp B/P Pulse Ox O2 Delivery O2 Flow Rate FiO2 01/30/17 07:30 98.4 79 18 99/49 98 01/28/17 08:20 Room Air Intake and Output 01/29/17 01/29/17 01/30/17 15:00 23:00 07:00 Intake Total 1200 ml 600 ml Output Total 400 ml Balance 1200 ml 600 ml -400 ml Exam Neck: supple Respiratory: clear to auscultation Cardiovascular: regular rate and rhythm Gastrointestinal: soft Medications Medications Current Medications Enoxaparin Sodium (Lovenox) 40 mg DAILY SC Last administered on 01/30/17 08:25 ; Admin Dose 40 MG; Start 01/23/17 at 09:00 Magnesium Oxide (Mag-Ox 400) 400 mg BID PO Last administered on 01/30/17 08:22 ; Admin Dose 400 MG; Start 01/27/17 at 09:00 Ondansetron HCl (Zofran Inj) 4 mg Q8H PRN IV NAUSEA AND/OR VOMITING; Start 01/23 at 00:00 Docusate Sodium (Colace) 100 mg BID PO Last administered on 01/30/17 08:22; Admin Dose 100 MG; Start 01/23/17 at 09:00 Magnesium Hydroxide (Milk Of Mag) 30 ml Q6H PRN PO CONSTIPATION; Start 01/23/17 at 00:00 Lactulose (Enulose) 20 gm BID PRN PO CONSTIPATION; Start 01/23/17 at 00:00 Bisacodyl (Dulcolax Supp) 10 mg Q24H PRN [place] CONSTIPATION; Start 01/23/17 at 00: 00 Polyethylene Glycol (Miralax) 17 gm DAILY PRN PO CONSTIPATION; Start 01/23/17 at 00:00 Famotidine (Pepcid) 20 mg BID PO Last administered on 01/30/17 08:22; Admin Dose 20 MG; Start 01/23/17 at 09:00 Senna (Senokot) 1 tab BID PO Last administered on 01/30/17 08:22; Admin Dose 1 TAB; Start 01/23/17 at 09:00 Acetaminophen (Tylenol Tab) 650 mg Q6H PRN PO ELEVATED TEMPERATURE Last administered on 01/28/17 10:51; Admin Dose 650 MG; Start 01/23/17 at 00:00 Topiramate (Topamax) 25 mg BID PO Last administered on 01/30/17 08:22; Admin Dose 25 MG; Start 01/23/17 at 09:00 Oxycodone HCl (Roxicodone) 20 mg Q6 PO Last administered on 01/30/17 06:11; Admin Dose 20 MG; Start 01/23/17 at 12:00 Vitamin B Complex/ Vitamin C (Berocca) 1 cap DAILY PO Last administered on 08:22; Admin Dose 1 CAP; Start 01/23/17 at 15:00 Hydromorphone HCl (Dilaudid) 1 mg Q3H PRN IV SEVERE PAIN Last administered on 14:54; Admin Dose 1 MG; Start 01/23/17 at 21:00 Simethicone 80 mg 80 mg Q6 PRN PO DISTENSION/GAS/BLOATING; Start 01/24/17 at 20: 00 Ertapenem/Sodium Chloride (Invanz/NS) 100 ml @ 200 mls/hr Q24H IVPB Last administered on 01/30/17 13:19; Admin Dose 200 MLS/HR; Start 01/25/17 at 13:00 IV Flush (NS 10 ml) 10 ml PRN PRN IV IV PROTOCOL Last administered on 01/30/17 09:48; Admin Dose 10 ML; Start 01/26/17 at 14:30 Meclizine HCl (Antivert) 25 mg TID PO ; Start 01/30/17 at 21:00 EVERETTE SIHDU MD Jan 30, 2017 17:21
[2017-01-30] MEDS ORDERED: MECLIZINE 12.5 MG TAB PO STA (18:20)
[2017-01-30 19:53] VITALS: BP 150/79; RESP 19
[2017-01-30] MEDS: MECLIZINE 25 MG TAB PO SCH (21:34)
[2017-01-31] MEDS: oxyCODONE 5 MG TAB PO SCH ×4 (06:00→18:00)
[2017-01-31 07:30] VITALS: BP 118/68; RESP 18
[2017-01-31] MEDS: HYDROmorphONE 1 MG/ML SYG IV PRN ×3 (08:40→15:42)
[2017-01-31] MEDS: MECLIZINE 25 MG TAB PO SCH ×3 (08:41→15:42)
[2017-01-31] MEDS: VITAMIN B COMPLEX/VIT C CAP PO SCH (08:41)
[2017-01-31] MEDS: TOPIRAMATE 25 MG TAB PO SCH ×2 (08:41→20:34)
[2017-01-31] MEDS: SENNA TAB PO SCH ×2 (08:41→20:33)
[2017-01-31] MEDS: DOCUSATE SODIUM 100 MG CAP PO SCH ×2 (08:41→20:33)
[2017-01-31] MEDS: MAGNESIUM OXIDE 400 MG TAB PO SCH ×2 (08:41→20:33)
[2017-01-31] MEDS: FAMOTIDINE 20 MG TAB PO SCH ×2 (08:41→20:33)
[2017-01-31] MEDS: ENOXAPARIN 40 MG/0.4 ML SYG SC SCH (12:09)
--- NOTE | 2017-01-31 13:18 | CONS ---
Date/Time of Note Date/Time of Note DATE: 01/31/17 TIME: 13:17 Consult Date/Type/Reason Admit Date/Time January 22, 2017 at 22:10 Type of Consultation: Neurology Ordering Provider: EVERETTE SIDHU MD Subjective In good spirits Objective pulm-cta sba/cga ambulation Vital Signs Date Time Temp Pulse Resp B/P Pulse Ox O2 Delivery O2 Flow Rate FiO2 01/31/17 07:30 98.1 80 18 118/68 100 01/28/17 08:20 Room Air Intake and Output 01/30/17 01/30/17 01/31/17 15:00 23:00 07:00 Intake Total 100 ml 460 ml 240 ml Balance 100 ml 460 ml 240 ml Results/Medications Medications Current Medications Enoxaparin Sodium (Lovenox) 40 mg DAILY SC Last administered on 01/31/17 12:09 ; Admin Dose 40 MG; Start 01/23/17 at 09:00 Magnesium Oxide (Mag-Ox 400) 400 mg BID PO Last administered on 01/31/17 08:41 ; Admin Dose 400 MG; Start 01/27/17 at 09:00 Ondansetron HCl (Zofran Inj) 4 mg Q8H PRN IV NAUSEA AND/OR VOMITING; Start 01/23 at 00:00 Docusate Sodium (Colace) 100 mg BID PO Last administered on 01/31/17 08:41; Admin Dose 100 MG; Start 01/23/17 at 09:00 Magnesium Hydroxide (Milk Of Mag) 30 ml Q6H PRN PO CONSTIPATION; Start 01/23/17 at 00:00 Lactulose (Enulose) 20 gm BID PRN PO CONSTIPATION; Start 01/23/17 at 00:00 Bisacodyl (Dulcolax Supp) 10 mg Q24H PRN [place] CONSTIPATION; Start 01/23/17 at 00: 00 Polyethylene Glycol (Miralax) 17 gm DAILY PRN PO CONSTIPATION; Start 01/23/17 at 00:00 Famotidine (Pepcid) 20 mg BID PO Last administered on 01/31/17 08:41; Admin Dose 20 MG; Start 01/23/17 at 09:00 Senna (Senokot) 1 tab BID PO Last administered on 01/31/17 08:41; Admin Dose 1 TAB; Start 01/23/17 at 09:00 Acetaminophen (Tylenol Tab) 650 mg Q6H PRN PO ELEVATED TEMPERATURE Last administered on 01/28/17 10:51; Admin Dose 650 MG; Start 01/23/17 at 00:00 Topiramate (Topamax) 25 mg BID PO Last administered on 01/31/17 08:41; Admin Dose 25 MG; Start 01/23/17 at 09:00 Oxycodone HCl (Roxicodone) 20 mg Q6 PO Last administered on 01/30/17 06:11; Admin Dose 20 MG; Start 01/23/17 at 12:00 Vitamin B Complex/ Vitamin C (Berocca) 1 cap DAILY PO Last administered on 08:41; Admin Dose 1 CAP; Start 01/23/17 at 15:00 Hydromorphone HCl (Dilaudid) 1 mg Q3H PRN IV SEVERE PAIN Last administered on 11:59; Admin Dose 1 MG; Start 01/23/17 at 21:00 Simethicone 80 mg 80 mg Q6 PRN PO DISTENSION/GAS/BLOATING; Start 01/24/17 at 20: 00 Ertapenem/Sodium Chloride (Invanz/NS) 100 ml @ 200 mls/hr Q24H IVPB Last administered on 01/30/17 13:19; Admin Dose 200 MLS/HR; Start 01/25/17 at 13:00 IV Flush (NS 10 ml) 10 ml PRN PRN IV IV PROTOCOL Last administered on 01/30/17 09:48; Admin Dose 10 ML; Start 01/26/17 at 14:30 Meclizine HCl (Antivert) 25 mg TID PO Last administered on 01/31/17 12:00; Admin Dose 25 MG; Start 01/30/17 at 21:00 Assessment/Plan Additional Assessment/Plan Rehab- diffuse SAH, s/p ventriculostomy Continue rehab HTN morbid obesity MILTON STATON MD Jan 31, 2017 13:18
[2017-01-31] MEDS: ERTAPENEM SODIUM 1 GM in SOD CHLORIDE 0.9% 100 ML IVPB SCH (13:25)
--- NOTE | 2017-01-31 14:28 | PN ---
Date/Time of Note Date/Time of Note DATE: 01/31/17 TIME: 14:26 Assessment/Plan VTE Prophylaxis VTE Prophylaxis Intervention: ambulation Lines/Catheters IV [facility]ter Type (from [facility]): PICC Line Central line still needed: Yes Urinary Cath still in place: No Assessment/Plan Chief Complaint/Hosp Course 1. The patient has subarachnoid hemorrhage, status post ventriculostomy and removal. 2. The patient is status post heart angiogram. 3. Hypertension. 4. Anemia. 5. diplopia 6. Obesity Problems: Assessment/Plan 1. Continue ab 2. Continue PT 3. better Hypertension control Subjective 24 Hr Interval Summary Constitutional: no complaints Eyes: other (dyplopia), visual change Respiratory: no complaints Cardiovascular: no complaints Genitourinary: no complaints Exam/Review of Systems Vital Signs Vitals Vital Signs Date Time Temp Pulse Resp B/P Pulse Ox O2 Delivery O2 Flow Rate FiO2 01/31/17 07:30 98.1 80 18 118/68 100 01/28/17 08:20 Room Air Intake and Output 01/30/17 01/30/17 01/31/17 15:00 23:00 07:00 Intake Total 100 ml 460 ml 240 ml Balance 100 ml 460 ml 240 ml Exam Constitutional: alert, oriented Psych: no complaints Eyes: EOMI, other (left eye with changes) Respiratory: clear to auscultation Cardiovascular: regular rate and rhythm Medications Medications Current Medications Enoxaparin Sodium (Lovenox) 40 mg DAILY SC Last administered on 01/31/17 12:09 ; Admin Dose 40 MG; Start 01/23/17 at 09:00 Magnesium Oxide (Mag-Ox 400) 400 mg BID PO Last administered on 01/31/17 08:41 ; Admin Dose 400 MG; Start 01/27/17 at 09:00 Ondansetron HCl (Zofran Inj) 4 mg Q8H PRN IV NAUSEA AND/OR VOMITING; Start 01/23 at 00:00 Docusate Sodium (Colace) 100 mg BID PO Last administered on 01/31/17 08:41; Admin Dose 100 MG; Start 01/23/17 at 09:00 Magnesium Hydroxide (Milk Of Mag) 30 ml Q6H PRN PO CONSTIPATION; Start 01/23/17 at 00:00 Lactulose (Enulose) 20 gm BID PRN PO CONSTIPATION; Start 01/23/17 at 00:00 Bisacodyl (Dulcolax Supp) 10 mg Q24H PRN [place] CONSTIPATION; Start 01/23/17 at 00: 00 Polyethylene Glycol (Miralax) 17 gm DAILY PRN PO CONSTIPATION; Start 01/23/17 at 00:00 Famotidine (Pepcid) 20 mg BID PO Last administered on 01/31/17 08:41; Admin Dose 20 MG; Start 01/23/17 at 09:00 Senna (Senokot) 1 tab BID PO Last administered on 01/31/17 08:41; Admin Dose 1 TAB; Start 01/23/17 at 09:00 Acetaminophen (Tylenol Tab) 650 mg Q6H PRN PO ELEVATED TEMPERATURE Last administered on 01/28/17 10:51; Admin Dose 650 MG; Start 01/23/17 at 00:00 Topiramate (Topamax) 25 mg BID PO Last administered on 01/31/17 08:41; Admin Dose 25 MG; Start 01/23/17 at 09:00 Oxycodone HCl (Roxicodone) 20 mg Q6 PO Last administered on 01/30/17 06:11; Admin Dose 20 MG; Start 01/23/17 at 12:00 Vitamin B Complex/ Vitamin C (Berocca) 1 cap DAILY PO Last administered on 08:41; Admin Dose 1 CAP; Start 01/23/17 at 15:00 Hydromorphone HCl (Dilaudid) 1 mg Q3H PRN IV SEVERE PAIN Last administered on 11:59; Admin Dose 1 MG; Start 01/23/17 at 21:00 Simethicone 80 mg 80 mg Q6 PRN PO DISTENSION/GAS/BLOATING; Start 01/24/17 at 20: 00 Ertapenem/Sodium Chloride (Invanz/NS) 100 ml @ 200 mls/hr Q24H IVPB Last administered on 01/31/17 13:25; Admin Dose 200 MLS/HR; Start 01/25/17 at 13:00 IV Flush (NS 10 ml) 10 ml PRN PRN IV IV PROTOCOL Last administered on 01/30/17 09:48; Admin Dose 10 ML; Start 01/26/17 at 14:30 Meclizine HCl (Antivert) 25 mg TID PO Last administered on 01/31/17t 12:00; Admin Dose 25 MG; Start 01/30/17 at 21:00 HERO ARIAS Jan 31, 2017 14:28
[2017-01-31 19:36] VITALS: BP 139/75; RESP 16
[2017-02-01] MEDS: oxyCODONE 5 MG TAB PO SCH ×4 (06:00→17:32)
[2017-02-01 07:38] LABS: ADD SCAN DIFF NO
[2017-02-01 07:41] LABS: BASOPHILS % 0.3 % (0.0-2.0); EOSINOPHILS # 0.6 10^3/ul (0.0-0.5); EOSINOPHILS % 9.9 % (0.0-7.0); HEMATOCRIT 37.1 % (42.0-52.0); LYMPHOCYTES # 3.6 10^3/ul (0.8-2.9); LYMPHOCYTES % 58.5 % (15.0-51.0); MEAN CORPUSCULAR HEMOGLOBIN 29.9 pg (29.0-33.0); MEAN CORPUSCULAR HGB CONC 32.3 g/dl (32.0-37.0); MEAN CORPUSCULAR VOLUME 92.5 fl (82.0-101.0); MEAN PLATELET VOLUME 9.6 fl (7.4-10.4); MONOCYTE # 0.7 10^3/ul (0.3-0.9); NEUTROPHIL # 1.3 10^3/ul (1.6-7.5); NEUTROPHILS % 20.1 % (39.0-77.0); PLATELET COUNT 233 10^3/UL (140-415); RED BLOOD COUNT 4.01 10^6/ul (4.70-6.10); RED CELL DISTRIBUTION WIDTH 12.5 % (11.5-14.5); WHITE BLOOD COUNT 6.2 10^3/ul (4.8-10.8)
[2017-02-01 08:00] VITALS: BP 139/82; PULSE 99; RESP 18
[2017-02-01 08:03] LABS: CALCIUM 9.7 mg/dl (8.4-10.2); CREATININE 0.97 mg/dl (0.61-1.24); POTASSIUM 3.7 mmol/L (3.5-5.1)
[2017-02-01] MEDS: TOPIRAMATE 25 MG TAB PO SCH ×2 (08:16→21:06)
[2017-02-01] MEDS: VITAMIN B COMPLEX/VIT C CAP PO SCH (08:16)
[2017-02-01] MEDS: FAMOTIDINE 20 MG TAB PO SCH ×2 (08:16→21:05)
[2017-02-01] MEDS: SENNA TAB PO SCH ×2 (08:16→21:00)
[2017-02-01] MEDS: MAGNESIUM OXIDE 400 MG TAB PO SCH ×2 (08:16→21:05)
[2017-02-01] MEDS: DOCUSATE SODIUM 100 MG CAP PO SCH ×2 (08:16→21:00)
[2017-02-01] MEDS: MECLIZINE 25 MG TAB PO SCH ×3 (08:16→21:05)
[2017-02-01] MEDS: ENOXAPARIN 40 MG/0.4 ML SYG SC SCH (08:17)
--- NOTE | 2017-02-01 11:09 | PN ---
Date/Time of Note Date/Time of Note DATE: 02/01/17 TIME: 11:08 Assessment/Plan VTE Prophylaxis VTE Prophylaxis Intervention: ambulation Lines/Catheters IV Catheter Type (from [facility] [place] PICC Line Central line still needed: Yes Urinary Cath still in place: No Assessment/Plan Chief Complaint/Hosp Course 1. The patient has subarachnoid hemorrhage, status post ventriculostomy and removal. 2. The patient is status post heart angiogram. 3. Hypertension. 4. Anemia. 5. diplopia 6. Obesity 7. ESBL urine 8. Dyslipidemia Problems: Assessment/Plan 1. Continue physical therapy 2. Continue medication regime 3. Lipitor to start 4. Contact isolation for ESBL urine 5. Dr Garzon for ID consult Subjective 24 Hr Interval Summary Constitutional: improved, no complaints Exam/Review of Systems Vital Signs Vitals Vital Signs Date Time Temp Pulse Resp B/P Pulse Ox O2 Delivery O2 Flow Rate FiO2 02/01/17 08:00 98.0 99 18 139/82 Room Air 01/31/17 19:36 99 Intake and Output 01/31/17 01/31/17 02/01/17 15:00 23:00 07:00 Intake Total 100 ml 1040 ml Balance 100 ml 1040 ml Exam Constitutional: alert, oriented Psych: no complaints Neck: supple Respiratory: clear to auscultation Cardiovascular: regular rate and rhythm Results Result Diagram: 02/01/17 0710 02/01/17 0710 Results 24 hrs Laboratory Tests Test 02/01/17 07:10 White Blood Count 6.2 Red Blood Count 4.01 L Hemoglobin 12.0 L Hematocrit 37.1 L Mean Corpuscular Volume 92.5 Mean Corpuscular Hemoglobin 29.9 Mean Corpuscular Hemoglobin Concent 32.3 Red Cell Distribution Width 12.5 Platelet Count 233 # Mean Platelet Volume 9.6 Neutrophils % 20.1 L Lymphocytes % 58.5 H Monocytes % 11.0 Eosinophils % 9.9 H Basophils % 0.3 Nucleated Red Blood Cells % 0.0 Neutrophils # 1.3 L Lymphocytes # 3.6 H Monocytes # 0.7 Eosinophils # 0.6 H Basophils # 0.0 Nucleated Red Blood Cells # 0.0 Sodium Level 145 H Potassium Level 3.7 Chloride Level 113 H Carbon Dioxide Level 22 Anion Gap 14 Blood Urea Nitrogen 10 Creatinine 0.97 Glucose Level 99 Calcium Level 9.7 Medications Medications Current Medications Enoxaparin Sodium (Lovenox) 40 mg DAILY SC Last administered on 02/01/17 08:17 ; Admin Dose 40 MG; Start 01/23/17 at 09:00 Magnesium Oxide (Mag-Ox 400) 400 mg BID PO Last administered on 02/01/17 08:16 ; Admin Dose 400 MG; Start 01/27/17 at 09:00 Ondansetron HCl (Zofran Inj) 4 mg Q8H PRN IV NAUSEA AND/OR VOMITING; Start 01/23 at 00:00 Docusate Sodium (Colace) 100 mg BID PO Last administered on 02/01/17 08:16; Admin Dose 100 MG; Start 01/23/17 at 09:00 Magnesium Hydroxide (Milk Of Mag) 30 ml Q6H PRN PO CONSTIPATION; Start 01/23/17 at 00:00 Lactulose (Enulose) 20 gm BID PRN PO CONSTIPATION; Start 01/23/17 at 00:00 Bisacodyl (Dulcolax Supp) 10 mg Q24H PRN [place] CONSTIPATION; Start 01/23/17 at 00: 00 Polyethylene Glycol (Miralax) 17 gm DAILY PRN PO CONSTIPATION; Start 01/23/17 at 00:00 Famotidine (Pepcid) 20 mg BID PO Last administered on 02/01/17 08:16; Admin Dose 20 MG; Start 01/23/17 at 09:00 Senna (Senokot) 1 tab BID PO Last administered on 02/01/17 08:16; Admin Dose 1 TAB; Start 01/23/17 at 09:00 Acetaminophen (Tylenol Tab) 650 mg Q6H PRN PO ELEVATED TEMPERATURE Last administered on 01/28/17 10:51; Admin Dose 650 MG; Start 01/23/17 at 00:00 Topiramate (Topamax) 25 mg BID PO Last administered on 02/01/17 08:16; Admin Dose 25 MG; Start 01/23/17 at 09:00 Oxycodone HCl (Roxicodone) 20 mg Q6 PO Last administered on 01/30/17 06:11; Admin Dose 20 MG; Start 01/23/17 at 12:00 Vitamin B Complex/ Vitamin C (Berocca) 1 cap DAILY PO Last administered on 02/01 08:16; Admin Dose 1 CAP; Start 01/23/17 at 15:00 Hydromorphone HCl (Dilaudid) 1 mg Q3H PRN IV SEVERE PAIN Last administered on 15:42; Admin Dose 1 MG; Start 01/23/17 at 21:00 Simethicone 80 mg 80 mg Q6 PRN PO DISTENSION/GAS/BLOATING; Start 01/24/17 at 20: 00 Ertapenem/Sodium Chloride (Invanz/NS) 100 ml @ 200 mls/hr Q24H IVPB Last administered on 01/31/17 13:25; Admin Dose 200 MLS/HR; Start 01/25/17 at 13:00 IV Flush (NS 10 ml) 10 ml PRN PRN IV IV PROTOCOL Last administered on 01/30/17 09:48; Admin Dose 10 ML; Start 01/26/17 at 14:30 Meclizine HCl (Antivert) 25 mg TID PO Last administered on 02/01/17 08:16; Admin Dose 25 MG; Start 01/30/17 at 21:00 HERO ARIAS Feb 01, 2017 11:09
--- NOTE | 2017-02-01 12:00 | CONS ---
Date/Time of Note Date/Time of Note DATE: 02/01/17 TIME: 12:00 Consult Date/Type/Reason Admit Date/Time January 22, 2017 at 22:10 Type of Consultation: Neurology Ordering Provider: EVERETTE SIDHU MD Subjective comfortable Objective sba ambulation Vital Signs Date Time Temp Pulse Resp B/P Pulse Ox O2 Delivery O2 Flow Rate FiO2 02/01/17 08:00 98.0 99 18 139/82 Room Air 01/31/17 19:36 99 Intake and Output 01/31/17 01/31/17 02/01/17 14:59 22:59 06:59 Intake Total 100 ml 1040 ml Balance 100 ml 1040 ml Results/Medications Result Diagram: 02/01/1710 02/01/17 0710 Results 24 hrs Laboratory Tests Test 02/01/17 07:10 White Blood Count 6.2 Red Blood Count 4.01 L Hemoglobin 12.0 L Hematocrit 37.1 L Mean Corpuscular Volume 92.5 Mean Corpuscular Hemoglobin 29.9 Mean Corpuscular Hemoglobin Concent 32.3 Red Cell Distribution Width 12.5 Platelet Count 233 # Mean Platelet Volume 9.6 Neutrophils % 20.1 L Lymphocytes % 58.5 H Monocytes % 11.0 Eosinophils % 9.9 H Basophils % 0.3 Nucleated Red Blood Cells % 0.0 Neutrophils # 1.3 L Lymphocytes # 3.6 H Monocytes # 0.7 Eosinophils # 0.6 H Basophils # 0.0 Nucleated Red Blood Cells # 0.0 Sodium Level 145 H Potassium Level 3.7 Chloride Level 113 H Carbon Dioxide Level 22 Anion Gap 14 Blood Urea Nitrogen 10 Creatinine 0.97 Glucose Level 99 Calcium Level 9.7 Medications Current Medications Enoxaparin Sodium (Lovenox) 40 mg DAILY SC Last administered on 02/01/17 08:17 ; Admin Dose 40 MG; Start 01/23/17 at 09:00 Magnesium Oxide (Mag-Ox 400) 400 mg BID PO Last administered on 02/01/17 08:16 ; Admin Dose 400 MG; Start 01/27/17 at 09:00 Ondansetron HCl (Zofran Inj) 4 mg Q8H PRN IV NAUSEA AND/OR VOMITING; Start 01/23 at 00:00 Docusate Sodium (Colace) 100 mg BID PO Last administered on 02/01/17 08:16; Admin Dose 100 MG; Start 01/23/17 at 09:00 Magnesium Hydroxide (Milk Of Mag) 30 ml Q6H PRN PO CONSTIPATION; Start 01/23/17 at 00:00 Lactulose (Enulose) 20 gm BID PRN PO CONSTIPATION; Start 01/23/17 at 00:00 Bisacodyl (Dulcolax Supp) 10 mg Q24H PRN [place] CONSTIPATION; Start 01/23/17 at 00: 00 Polyethylene Glycol (Miralax) 17 gm DAILY PRN PO CONSTIPATION; Start 01/23/17 at 00:00 Famotidine (Pepcid) 20 mg BID PO Last administered on 02/01/17 08:16; Admin Dose 20 MG; Start 01/23/17 at 09:00 Senna (Senokot) 1 tab BID PO Last administered on 02/01/17 08:16; Admin Dose 1 TAB; Start 01/23/17 at 09:00 Acetaminophen (Tylenol Tab) 650 mg Q6H PRN PO ELEVATED TEMPERATURE Last administered on 01/28/17 10:51; Admin Dose 650 MG; Start 01/23/17 at 00:00 Topiramate (Topamax) 25 mg BID PO Last administered on 02/01/17 08:16; Admin Dose 25 MG; Start 01/23/17 at 09:00 Oxycodone HCl (Roxicodone) 20 mg Q6 PO Last administered on 01/30/17 06:11; Admin Dose 20 MG; Start 01/23/17 at 12:00 Vitamin B Complex/ Vitamin C (Berocca) 1 cap DAILY PO Last administered on 02/01 08:16; Admin Dose 1 CAP; Start 01/23/17 at 15:00 Hydromorphone HCl (Dilaudid) 1 mg Q3H PRN IV SEVERE PAIN Last administered on 15:42; Admin Dose 1 MG; Start 01/23/17 at 21:00 Simethicone 80 mg 80 mg Q6 PRN PO DISTENSION/GAS/BLOATING; Start 01/24/17 at 20: 00 Ertapenem/Sodium Chloride (Invanz/NS) 100 ml @ 200 mls/hr Q24H IVPB Last administered on 01/31/17 13:25; Admin Dose 200 MLS/HR; Start 01/25/17 at 13:00 IV Flush (NS 10 ml) 10 ml PRN PRN IV IV PROTOCOL Last administered on 01/30/17 09:48; Admin Dose 10 ML; Start 01/26/17 at 14:30 Meclizine HCl (Antivert) 25 mg TID PO Last administered on 02/01/17 08:16; Admin Dose 25 MG; Start 01/30/17 at 21:00 Atorvastatin Calcium (Lipitor) 20 mg HS PO ; Start 02/01/17 at 21:00 Assessment/Plan Additional Assessment/Plan Rehab- diffuse SAH, s/p ventriculostomy Continue rehab program [id number] per ID HTN morbid obesity MILTON STATON MD Feb 01, 2017 12:00
[2017-02-01] MEDS: ERTAPENEM SODIUM 1 GM in SOD CHLORIDE 0.9% 100 ML IVPB SCH (12:14)
[2017-02-01 20:00] VITALS: BP 111/51; RESP 20
[2017-02-01] MEDS: ATORVASTATIN 20 MG TAB PO SCH (21:05)
[2017-02-01] MEDS: HYDROmorphONE 1 MG/ML SYG IV PRN (21:08)
[2017-02-02] MEDS: oxyCODONE 5 MG TAB PO SCH ×4 (06:00→17:47)
[2017-02-02] MEDS: SENNA TAB PO SCH ×2 (08:34→20:29)
[2017-02-02] MEDS: VITAMIN B COMPLEX/VIT C CAP PO SCH (08:34)
[2017-02-02 08:35] LABS: ADD SCAN DIFF NO
[2017-02-02] MEDS: MECLIZINE 25 MG TAB PO SCH ×3 (08:35→20:29)
[2017-02-02] MEDS: MAGNESIUM OXIDE 400 MG TAB PO SCH ×2 (08:35→20:29)
[2017-02-02] MEDS: DOCUSATE SODIUM 100 MG CAP PO SCH ×2 (08:35→20:29)
[2017-02-02] MEDS: TOPIRAMATE 25 MG TAB PO SCH ×2 (08:35→20:29)
[2017-02-02] MEDS: FAMOTIDINE 20 MG TAB PO SCH ×2 (08:35→20:29)
[2017-02-02] MEDS: ENOXAPARIN 40 MG/0.4 ML SYG SC SCH (08:36)
[2017-02-02 08:41] LABS: BASOPHILS % 0.3 % (0.0-2.0); EOSINOPHILS # 0.5 10^3/ul (0.0-0.5); EOSINOPHILS % 8.3 % (0.0-7.0); HEMOGLOBIN 11.9 g/dl (14.0-18.0); LYMPHOCYTES # 3.5 10^3/ul (0.8-2.9); LYMPHOCYTES % 56.8 % (15.0-51.0); MEAN CORPUSCULAR HEMOGLOBIN 29.2 pg (29.0-33.0); MEAN CORPUSCULAR HGB CONC 31.3 g/dl (32.0-37.0); MEAN CORPUSCULAR VOLUME 93.1 fl (82.0-101.0); MEAN PLATELET VOLUME 10.1 fl (7.4-10.4); MONOCYTE # 0.7 10^3/ul (0.3-0.9); MONOCYTES % 10.6 % (0.0-11.0); NEUTROPHIL # 1.5 10^3/ul (1.6-7.5); NEUTROPHILS % 23.8 % (39.0-77.0); PLATELET COUNT 226 10^3/UL (140-415); RED BLOOD COUNT 4.08 10^6/ul (4.70-6.10); RED CELL DISTRIBUTION WIDTH 12.4 % (11.5-14.5); WHITE BLOOD COUNT 6.1 10^3/ul (4.8-10.8)
[2017-02-02 08:59] LABS: CALCIUM 9.5 mg/dl (8.4-10.2); CREATININE 0.99 mg/dl (0.61-1.24); POTASSIUM 3.8 mmol/L (3.5-5.1)
[2017-02-02] MEDS: ERTAPENEM SODIUM 1 GM in SOD CHLORIDE 0.9% 100 ML IVPB SCH (12:37)
--- NOTE | 2017-02-02 16:08 | PN ---
Date/Time of Note Date/Time of Note DATE: 02/02/17 TIME: 16:08 Assessment/Plan VTE Prophylaxis VTE Prophylaxis Intervention: other Lines/Catheters IV Catheter Type (from Nrsg): PICC Line Central line still needed: Yes Urinary Cath still in place: No Reason Cath still needed: other (indicate) Assessment/Plan Chief Complaint/Hosp Course cva htn esbl uti plan antibiotic pt ot per neuro dc antibioyic Problems: Subjective 24 Hr Interval Summary Cardiovascular: no complaints Gastrointestinal: no complaints Exam/Review of Systems Vital Signs Vitals Vital Signs Date Time Temp Pulse Resp B/P Pulse Ox O2 Delivery O2 Flow Rate FiO2 02/01/17 20:00 98.6 100 20 111/51 84 02/01/17 08:00 Room Air Intake and Output 02/01/17 02/01/17 02/02/17 15:00 23:00 07:00 Intake Total 1300 ml 1320 ml 280 ml Balance 1300 ml 1320 ml 280 ml Exam Neck: supple Respiratory: clear to auscultation Cardiovascular: regular rate and rhythm Gastrointestinal: soft Musculoskeletal: nl extremities to inspection Extremities: normal pulses Results Result Diagram: 02/02/1772602/02/17 0727 Results 24 hrs Laboratory Tests Test 02/02/17 07:27 White Blood Count 6.1 Red Blood Count 4.08 L Hemoglobin 11.9 L Hematocrit 38.0 L Mean Corpuscular Volume 93.1 Mean Corpuscular Hemoglobin 29.2 Mean Corpuscular Hemoglobin Concent 31.3 L Red Cell Distribution Width 12.4 Platelet Count 226 Mean Platelet Volume 10.1 Neutrophils % 23.8 L Lymphocytes % 56.8 H Monocytes % 10.6 Eosinophils % 8.3 H Basophils % 0.3 Nucleated Red Blood Cells % 0.0 Neutrophils # 1.5 L Lymphocytes # 3.5 H Monocytes # 0.7 Eosinophils # 0.5 Basophils # 0.0 Nucleated Red Blood Cells # 0.0 Sodium Level 143 Potassium Level 3.8 Chloride Level 113 H Carbon Dioxide Level 24 Anion Gap 10 Blood Urea Nitrogen 10 Creatinine 0.99 Glucose Level 93 Calcium Level 9.5 Medications Medications Current Medications Enoxaparin Sodium (Lovenox) 40 mg DAILY SC Last administered on 02/02/17t 08:36 ; Admin Dose 40 MG; Start 01/23/17 at 09:00 Magnesium Oxide (Mag-Ox 400) 400 mg BID PO Last administered on 02/02/17 08:35 ; Admin Dose 400 MG; Start 01/27/17 at 09:00 Ondansetron HCl (Zofran Inj) 4 mg Q8H PRN IV NAUSEA AND/OR VOMITING; Start 01/23 at 00:00 Docusate Sodium (Colace) 100 mg BID PO Last administered on 02/02/17 08:35; Admin Dose 100 MG; Start 01/23/17 at 09:00 Magnesium Hydroxide (Milk Of Mag) 30 ml Q6H PRN PO CONSTIPATION; Start 01/23/17 at 00:00 Lactulose (Enulose) 20 gm BID PRN PO CONSTIPATION; Start 01/23/17 at 00:00 Bisacodyl (Dulcolax Supp) 10 mg Q24H PRN [place] CONSTIPATION; Start 01/23/17 at 00: 00 Polyethylene Glycol (Miralax) 17 gm DAILY PRN PO CONSTIPATION; Start 01/23/17 at 00:00 Famotidine (Pepcid) 20 mg BID PO Last administered on 02/02/17 08:35; Admin Dose 20 MG; Start 01/23/17 at 09:00 Senna (Senokot) 1 tab BID PO Last administered on 02/02/17 08:34; Admin Dose 1 TAB; Start 01/23/17 at 09:00 Acetaminophen (Tylenol Tab) 650 mg Q6H PRN PO ELEVATED TEMPERATURE Last administered on 01/28/17 10:51; Admin Dose 650 MG; Start 01/23/17 at 00:00 Topiramate (Topamax) 25 mg BID PO Last administered on 02/02/17 08:35; Admin Dose 25 MG; Start 01/23/17 at 09:00 Oxycodone HCl (Roxicodone) 20 mg Q6 PO Last administered on 02/01/17 12:12; Admin Dose 20 MG; Start 01/23/17 at 12:00 Vitamin B Complex/ Vitamin C (Berocca) 1 cap DAILY PO Last administered on 02/02 08:34; Admin Dose 1 CAP; Start 01/23/17 at 15:00 Hydromorphone HCl (Dilaudid) 1 mg Q3H PRN IV SEVERE PAIN Last administered on 21:08; Admin Dose 1 MG; Start 01/23/17 at 21:00 Simethicone 80 mg 80 mg Q6 PRN PO DISTENSION/GAS/BLOATING; Start 01/24/17 at 20: 00 Ertapenem/Sodium Chloride (Invanz/NS) 100 ml @ 200 mls/hr Q24H IVPB Last administered on 02/02/17 12:37; Admin Dose 200 MLS/HR; Start 01/25/17 at 13:00 IV Flush (NS 10 ml) 10 ml PRN PRN IV IV PROTOCOL Last administered on 01/30/17 09:48; Admin Dose 10 ML; Start 01/26/17 at 14:30 Meclizine HCl (Antivert) 25 mg TID PO Last administered on 02/02/17 12:38; Admin Dose 25 MG; Start 01/30/17 at 21:00 Atorvastatin Calcium (Lipitor) 20 mg HS PO Last administered on 02/01/17 21:05 ; Admin Dose 20 MG; Start 02/01/17 at 21:00 EVREETTE SIDHU MD Feb 02, 2017 16:08
--- NOTE | 2017-02-02 20:24 | PN ---
DATE: 02/02/2017 INFECTIOUS DISEASE PROGRESS NOTE SUBJECTIVE: The patient is alert, feels good. Denies pain, discomfort. No fevers, no dysuria. ANTIMICROBIALS: He is on Invanz day #9. PHYSICAL EXAMINATION: GENERAL: This is a morbidly obese, middle-aged man who is alert, in no distress. HEENT: Head atraumatic, normocephalic. Sclerae anicteric. Buccal mucosa pink. NECK: Supple. CHEST: Rise symmetrical. Breath sounds diminished. HEART: S1, S2. ABDOMEN: Soft. Bowel sounds present. EXTREMITIES: With trace edema. ASSESSMENT: 1. Resolving urinary tract infection with culture grew Escherichia coli extended-spectrum beta-lact amase, patient is completing antibiotic. 2. Hypertension. 3. Anemia. 4. Diplopia. 5. History of subarachnoid hemorrhage, status post ventriculostomy with removal. PLAN: The patient remains stable. Neurology on case. We will continue him on current antimicrobia ls for 1 more day. Dictated By: BETH HUBBARD PRODUCTION TECHNOLOGIST for YOVANI KWON/CARMELA Conf#: [id number] DID#: [id number]
[2017-02-02] MEDS: HYDROmorphONE 1 MG/ML SYG IV PRN (20:29)
[2017-02-02] MEDS: ATORVASTATIN 20 MG TAB PO SCH (20:29)
--- NOTE | 2017-02-02 20:33 | CONS ---
DATE OF ADMISSION: 01/22/2017 DATE OF CONSULTATION: TYPE OF CONSULTATION: Infectious disease. REQUESTING PHYSICIAN: Dr. Zafar Elizalde. I am seeing this patient for Dr. Alberto Garzon. HISTORY OF PRESENT ILLNESS: A 41-year-old -[place] male who was well and unaware th at he had hypertension until late in December when he had acute onset of a severe frontal headache and de veloped a facial droop, slurred speech. He was seen at the [facility] and found to have a blood pressure systolic of 200 and was diagnosed as having a subarachnoid hemorrhage. The patient had an exhaustive workup to find a source of the bleeding, which, according to the patient, was an aneurys m, but according to what I read in the reports, they did not find anything. The patient was admitte d to rehabilitation because of difficulty with his vision and slurred speech and other problems. He had a Saavedra catheter upon arrival, but that was discontinued after he was here 3 days. He has made satisfactory progress, but has to concentrate on using eye exercises for his right eye in order to strengthen it because he has diplopia. The patient had a ventriculostomy placed and then later radha deacon. REASON FOR CONSULTATION: Extended-spectrum beta-lactamase Escherichia coli urinary tract infection, which grew E. coli, which was resistant to all the antibiotics tested, except for being resistant t o cefotaxime and ampicillin. The patient's nares was negative for MRSA. PAST MEDICAL HISTORY: The patient had only risk factor that was known was being morbidly obese. ALLERGIES: HE HAS NO KNOWN ALLERGIES. MEDICATIONS: Currently his medications include: 1. Atorvastatin 20 mg daily. 2. Meclizine 25 mg 3 times a day. 3. Simethicone 80 mg p.r.n. 4. Vitamin B complex 1 daily. 5. Hydrocodone every 6 hours as needed. 6. Lovenox. 7. Famotidine 20 mg b.i.d. 8. Topiramate 25 mg b.i.d. 9. I do not see on his list any antihypertensive medications. 10. The patient also has been prescribed ertapenem 1 gram on 01/25/2017. This was stopped on 02/02. PHYSICAL EXAMINATION: GENERAL: Reveals a morbidly obese, alert, cooperative, -[place] male, surrounded by his fam crispin. VITAL SIGNS: His blood pressure 115/51, pulse is 100, temperature 98.6, his pulse oximetry is 84 on room air, and respiratory rate is 20. HEENT: The patient has his right eye blocked by wearing a cover over the right lens of a pair of gl asses. The mouth has moist mucous membranes. NECK: Obese. I cannot see any anatomic landmarks or jugular venous distention. CHEST: Clear to auscultation. It is very broad and obese. HEART: Occasionally irregular and there is no murmur. ABDOMEN: Obese and soft. No palpable organs are palpable. EXTREMITIES: Reveal no edema, cyanosis or clubbing. NEUROLOGIC: Gait testing was not performed. INITIAL IMPRESSION: 1. Urinary tract infection with extended-spectrum beta-lactamase Escherichia coli. 2. Subarachnoid hemorrhage. 3. Hypertension. 4. Morbid obesity. 5. Hyperlipidemia. RECOMMENDATIONS: I would treat the patient with Cipro 500 mg every 12 hours for 10 days to ensure r esolution of the ESBL resistant organism. Dictated By: Sabina HECK MD EC/NTS Conf#: [id number] DID#: [id number] CC: MILTON STATON MD;*EndCC*
[2017-02-02 20:46] VITALS: BP 138/80; RESP 20
[2017-02-03] MEDS: CIPROFLOXACIN 500 MG TAB PO SCH ×2 (05:54→18:27)
[2017-02-03] MEDS: oxyCODONE 5 MG TAB PO SCH ×4 (05:55→18:00)
[2017-02-03 07:30] VITALS: BP 138/67; RESP 18
[2017-02-03] MEDS: HYDROmorphONE 1 MG/ML SYG IV PRN ×4 (07:53→18:23)
[2017-02-03] MEDS: DOCUSATE SODIUM 100 MG CAP PO SCH ×2 (09:00→20:55)
[2017-02-03] MEDS: ENOXAPARIN 40 MG/0.4 ML SYG SC SCH (09:26)
[2017-02-03] MEDS: TOPIRAMATE 25 MG TAB PO SCH ×2 (09:27→20:55)
[2017-02-03] MEDS: MECLIZINE 25 MG TAB PO SCH ×3 (09:27→20:55)
[2017-02-03] MEDS: SENNA TAB PO SCH ×2 (09:27→20:55)
[2017-02-03] MEDS: VITAMIN B COMPLEX/VIT C CAP PO SCH (09:27)
[2017-02-03] MEDS: MAGNESIUM OXIDE 400 MG TAB PO SCH ×2 (09:27→20:55)
[2017-02-03] MEDS: FAMOTIDINE 20 MG TAB PO SCH ×2 (11:33→20:55)
--- NOTE | 2017-02-03 11:54 | CONS ---
Date/Time of Note Date/Time of Note DATE: 02/03/17 TIME: 11:54 Consult Date/Type/Reason Admit Date/Time January 22, 2017 at 22:10 Type of Consultation: Neurology Ordering Provider: EVERETTE SIDHU MD Objective Vital Signs Date Time Temp Pulse Resp B/P Pulse Ox O2 Delivery O2 Flow Rate FiO2 02/02/17 20:46 98.4 103 20 138/80 98 02/01/17 08:00 Room Air Intake and Output 02/02/17 02/02/17 02/03/17 15:00 23:00 07:00 Intake Total 100 ml 720 ml Balance 100 ml 720 ml INTERDISCIPLINARY TEAM CONFERENCE BOWEL- Cont BLADDER-Cont SKIN- intact OT- DRESSING-s BATHING-s TOILETING-s PT- BED MOBILITY-sba TRANSFERS-sba AMBULATION-sba 150 feet A/P- Interdisciplinary team conference held today. Please see interdisciplinary sheet. Working toward d.c. on 02/05 with post discharge follow up of physical therapy, occupational therapy. Results/Medications Result Diagram: 02/02/1772602/02/17 0727 Medications Current Medications Enoxaparin Sodium (Lovenox) 40 mg DAILY SC Last administered on 02/03/17 09:26 ; Admin Dose 40 MG; Start 01/23/17 at 09:00 Magnesium Oxide (Mag-Ox 400) 400 mg BID PO Last administered on 02/03/17 09:27 ; Admin Dose 400 MG; Start 01/27/17 at 09:00 Ondansetron HCl (Zofran Inj) 4 mg Q8H PRN IV NAUSEA AND/OR VOMITING; Start 01/23 at 00:00 Docusate Sodium (Colace) 100 mg BID PO Last administered on 02/02/17 20:29; Admin Dose 100 MG; Start 01/23/17 at 09:00 Magnesium Hydroxide (Milk Of Mag) 30 ml Q6H PRN PO CONSTIPATION; Start 01/23/17 at 00:00 Lactulose (Enulose) 20 gm BID PRN PO CONSTIPATION; Start 01/23/17 at 00:00 Bisacodyl (Dulcolax Supp) 10 mg Q24H PRN [place] CONSTIPATION; Start 01/23/17 at 00: 00 Polyethylene Glycol (Miralax) 17 gm DAILY PRN PO CONSTIPATION; Start 01/23/17 at 00:00 Famotidine (Pepcid) 20 mg BID PO Last administered on 02/03/17 11:33; Admin Dose 20 MG; Start 01/23/17 at 09:00 Senna (Senokot) 1 tab BID PO Last administered on 02/03/17 09:27; Admin Dose 1 TAB; Start 01/23/17 at 09:00 Acetaminophen (Tylenol Tab) 650 mg Q6H PRN PO ELEVATED TEMPERATURE Last administered on 01/28/17 10:51; Admin Dose 650 MG; Start 01/23/17 at 00:00 Topiramate (Topamax) 25 mg BID PO Last administered on 02/03/17 09:27; Admin Dose 25 MG; Start 01/23/17 at 09:00 Oxycodone HCl (Roxicodone) 20 mg Q6 PO Last administered on 02/03/17 05:55; Admin Dose 20 MG; Start 01/23/17 at 12:00 Vitamin B Complex/ Vitamin C (Berocca) 1 cap DAILY PO Last administered on 02/03 09:27; Admin Dose 1 CAP; Start 01/23/17 at 15:00 Hydromorphone HCl (Dilaudid) 1 mg Q3H PRN IV SEVERE PAIN Last administered on 11:34; Admin Dose 1 MG; Start 01/23/17 at 21:00 Simethicone 80 mg 80 mg Q6 PRN PO DISTENSION/GAS/BLOATING; Start 01/24/17 at 20: 00 Ertapenem/Sodium Chloride (Invanz/NS) 100 ml @ 200 mls/hr Q24H IVPB Last administered on 02/02/17 12:37; Admin Dose 200 MLS/HR; Start 01/25/17 at 13:00; Stop 02/03/17 at 16:06 IV Flush (NS 10 ml) 10 ml PRN PRN IV IV PROTOCOL Last administered on 01/30/17 09:48; Admin Dose 10 ML; Start 01/26/17 at 14:30 Meclizine HCl (Antivert) 25 mg TID PO Last administered on 02/03/17 09:27; Admin Dose 25 MG; Start 01/30/17 at 21:00 Atorvastatin Calcium (Lipitor) 20 mg HS PO Last administered on 02/02/17 20:29 ; Admin Dose 20 MG; Start 02/01/17 at 21:00 Ciprofloxacin (Cipro) 500 mg BID@,18 PO Last administered on 02/03/17 05:54 ; Admin Dose 500 MG; Start 02/03/17 at 06:00; Stop 02/14/17 at 12:00 MILTON STATON MD Feb 03, 2017 11:54
[2017-02-03] MEDS: ERTAPENEM SODIUM 1 GM in SOD CHLORIDE 0.9% 100 ML IVPB SCH (13:18)
--- NOTE | 2017-02-03 17:34 | PN ---
Date/Time of Note Date/Time of Note DATE: 02/03/17 TIME: 17:33 Assessment/Plan VTE Prophylaxis VTE Prophylaxis Intervention: other Lines/Catheters IV Catheter Type (from Nrs): PICC Line Central line still needed: Yes Urinary Cath still in place: No Assessment/Plan Chief Complaint/Hosp Course cva htn esbl uti plan pt ot per neuro dc antibioyic Problems: Subjective 24 Hr Interval Summary Cardiovascular: no complaints Gastrointestinal: no complaints Exam/Review of Systems Vital Signs Vitals Vital Signs Date Time Temp Pulse Resp B/P Pulse Ox O2 Delivery O2 Flow Rate FiO2 02/03/17 07:30 98.5 78 18 138/67 98 02/01/17 08:00 Room Air Intake and Output 02/02/17 02/02/17 02/03/17 15:00 23:00 07:00 Intake Total 100 ml 720 ml Balance 100 ml 720 ml Exam Respiratory: clear to auscultation Cardiovascular: regular rate and rhythm Gastrointestinal: bowel sounds, soft Results Result Diagram: 02/02/1772602/02/17726 Medications Medications Current Medications Enoxaparin Sodium (Lovenox) 40 mg DAILY SC Last administered on 02/03/17 09:26 ; Admin Dose 40 MG; Start 01/23/17 at 09:00 Magnesium Oxide (Mag-Ox 400) 400 mg BID PO Last administered on 02/03/17 09:27 ; Admin Dose 400 MG; Start 01/27/17 at 09:00 Ondansetron HCl (Zofran Inj) 4 mg Q8H PRN IV NAUSEA AND/OR VOMITING; Start 01/23 at 00:00 Docusate Sodium (Colace) 100 mg BID PO Last administered on 02/02/17 20:29; Admin Dose 100 MG; Start 01/23/17 at 09:00 Magnesium Hydroxide (Milk Of Mag) 30 ml Q6H PRN PO CONSTIPATION; Start 01/23/17 at 00:00 Lactulose (Enulose) 20 gm BID PRN PO CONSTIPATION; Start 01/23/17 at 00:00 Bisacodyl (Dulcolax Supp) 10 mg Q24H PRN [place] CONSTIPATION; Start 01/23/17 at 00: 00 Polyethylene Glycol (Miralax) 17 gm DAILY PRN PO CONSTIPATION; Start 01/23/17 at 00:00 Famotidine (Pepcid) 20 mg BID PO Last administered on 02/03/17 11:33; Admin Dose 20 MG; Start 01/23/17 at 09:00 Senna (Senokot) 1 tab BID PO Last administered on 02/03/17 09:27; Admin Dose 1 TAB; Start 01/23/17 at 09:00 Acetaminophen (Tylenol Tab) 650 mg Q6H PRN PO ELEVATED TEMPERATURE Last administered on 01/28/17 10:51; Admin Dose 650 MG; Start 01/23/17 at 00:00 Topiramate (Topamax) 25 mg BID PO Last administered on 02/03/17 09:27; Admin Dose 25 MG; Start 01/23/17 at 09:00 Oxycodone HCl (Roxicodone) 20 mg Q6 PO Last administered on 02/03/17 13:15; Admin Dose 20 MG; Start 01/23/17 at 12:00 Vitamin B Complex/ Vitamin C (Berocca) 1 cap DAILY PO Last administered on 02/03 09:27; Admin Dose 1 CAP; Start 01/23/17 at 15:00 Hydromorphone HCl (Dilaudid) 1 mg Q3H PRN IV SEVERE PAIN Last administered on 14:43; Admin Dose 1 MG; Start 01/23/17 at 21:00 Simethicone (Mylicon) 80 mg Q6 PRN PO DISTENSION/GAS/BLOATING; Start 01/24/17 at 20:00 IV Flush (NS 10 ml) 10 ml PRN PRN IV IV PROTOCOL Last administered on 01/30/17 09:48; Admin Dose 10 ML; Start 01/26/17 at 14:30 Meclizine HCl (Antivert) 25 mg TID PO Last administered on 02/03/17 13:16; Admin Dose 25 MG; Start 01/30/17 at 21:00 Atorvastatin Calcium (Lipitor) 20 mg HS PO Last administered on 02/02/17 20:29 ; Admin Dose 20 MG; Start 02/01/17 at 21:00 Ciprofloxacin (Cipro) 500 mg BID@ PO Last administered on 02/03/17 05:54 ; Admin Dose 500 MG; Start 02/03/17 at 06:00; Stop 02/14/17 at 12:00 EVERETTE SIDHU MD Feb 03, 2017 17:34
[2017-02-03 20:02] VITALS: BP 121/59; RESP 18
[2017-02-03] MEDS: ATORVASTATIN 20 MG TAB PO SCH (20:55)
[2017-02-04] MEDS: oxyCODONE 5 MG TAB PO SCH ×4 (05:58→18:11)
[2017-02-04] MEDS: CIPROFLOXACIN 500 MG TAB PO SCH ×2 (05:58→18:13)
[2017-02-04 07:32] VITALS: BP 109/57; RESP 18
[2017-02-04] MEDS: HYDROmorphONE 1 MG/ML SYG IV PRN ×6 (08:34→19:04)
[2017-02-04] MEDS: VITAMIN B COMPLEX/VIT C CAP PO SCH (09:30)
[2017-02-04] MEDS: MECLIZINE 25 MG TAB PO SCH ×3 (09:30→20:50)
[2017-02-04] MEDS: TOPIRAMATE 25 MG TAB PO SCH ×2 (09:31→20:50)
[2017-02-04] MEDS: ENOXAPARIN 40 MG/0.4 ML SYG SC SCH (09:32)
[2017-02-04] MEDS: MAGNESIUM OXIDE 400 MG TAB PO SCH ×2 (09:32→20:50)
[2017-02-04] MEDS: FAMOTIDINE 20 MG TAB PO SCH ×2 (09:32→20:50)
[2017-02-04] MEDS: DOCUSATE SODIUM 100 MG CAP PO SCH ×2 (09:32→20:50)
[2017-02-04] MEDS: SENNA TAB PO SCH ×2 (09:32→20:49)
--- NOTE | 2017-02-04 12:07 | CONS ---
Date/Time of Note Date/Time of Note DATE: 02/04/17 TIME: 12:06 Consult Date/Type/Reason Admit Date/Time January 22, 2017 at 22:10 Type of Consultation: Neurology Ordering Provider: EVERETTE SIDHU MD Subjective Doing well Objective pulm-cta sba ambulation Vital Signs Date Time Temp Pulse Resp B/P Pulse Ox O2 Delivery O2 Flow Rate FiO2 02/04/17 07:32 98.3 72 18 109/57 98 02/01/17 08:00 Room Air Intake and Output 02/03/17 02/03/17 02/04/17 15:00 23:00 07:00 Intake Total 100 ml 620 ml 760 ml Balance 100 ml 620 ml 760 ml Results/Medications Result Diagram: 02/02/1772602/02/17726 Medications Current Medications Enoxaparin Sodium (Lovenox) 40 mg DAILY SC Last administered on 02/04/17 09:32 ; Admin Dose 40 MG; Start 01/23/17 at 09:00 Magnesium Oxide (Mag-Ox 400) 400 mg BID PO Last administered on 02/04/17 09:32 ; Admin Dose 400 MG; Start 01/27/17 at 09:00 Ondansetron HCl (Zofran Inj) 4 mg Q8H PRN IV NAUSEA AND/OR VOMITING; Start 01/23 at 00:00 Docusate Sodium (Colace) 100 mg BID PO Last administered on 02/04/17 09:32; Admin Dose 100 MG; Start 01/23/17 at 09:00 Magnesium Hydroxide (Milk Of Mag) 30 ml Q6H PRN PO CONSTIPATION; Start 01/23/17 at 00:00 Lactulose (Enulose) 20 gm BID PRN PO CONSTIPATION; Start 01/23/17 at 00:00 Bisacodyl (Dulcolax Supp) 10 mg Q24H PRN [place] CONSTIPATION; Start 01/23/17 at 00: 00 Polyethylene Glycol (Miralax) 17 gm DAILY PRN PO CONSTIPATION; Start 01/23/17 at 00:00 Famotidine (Pepcid) 20 mg BID PO Last administered on 02/04/17 09:32; Admin Dose 20 MG; Start 01/23/17 at 09:00 Senna (Senokot) 1 tab BID PO Last administered on 02/04/17 09:32; Admin Dose 1 TAB; Start 01/23/17 at 09:00 Acetaminophen (Tylenol Tab) 650 mg Q6H PRN PO ELEVATED TEMPERATURE Last administered on 01/28/17 10:51; Admin Dose 650 MG; Start 01/23/17 at 00:00 Topiramate (Topamax) 25 mg BID PO Last administered on 02/04/17 09:31; Admin Dose 25 MG; Start 01/23/17 at 09:00 Oxycodone HCl (Roxicodone) 20 mg Q6 PO Last administered on 02/04/17 05:58; Admin Dose 20 MG; Start 01/23/17 at 12:00 Vitamin B Complex/ Vitamin C (Berocca) 1 cap DAILY PO Last administered on 02/04 09:30; Admin Dose 1 CAP; Start 01/23/17 at 15:00 Simethicone (Mylicon) 80 mg Q6 PRN PO DISTENSION/GAS/BLOATING; Start 01/24/17 at 20:00 IV Flush (NS 10 ml) 10 ml PRN PRN IV IV PROTOCOL Last administered on 01/30/17 09:48; Admin Dose 10 ML; Start 01/26/17 at 14:30 Meclizine HCl (Antivert) 25 mg TID PO Last administered on 02/04/17 09:30; Admin Dose 25 MG; Start 01/30/17 at 21:00 Atorvastatin Calcium (Lipitor) 20 mg HS PO Last administered on 02/03/17 20:55 ; Admin Dose 20 MG; Start 02/01/17 at 21:00 Ciprofloxacin (Cipro) 500 mg BID@ PO Last administered on 02/04/17 05:58 ; Admin Dose 500 MG; Start 02/03/17 at 06:00; Stop 02/14/17 at 12:00 Hydromorphone HCl (Dilaudid) 0.5 mg Q3H PRN IV SEVERE PAIN Last administered on 02/04/17 08:34; Admin Dose 0.5 MG; Start 02/04/17 at 09:00 Assessment/Plan Additional Assessment/Plan Rehab- diffuse SAH, s/p ventriculostomy Continue rehab program, dc 02/05 UTi-abx per ID HTN morbid obesity MILTON STATON MD Feb 04, 2017 12:07
--- NOTE | 2017-02-04 14:16 | CONS ---
Date/Time of Note Date/Time of Note DATE: 02/04/17 TIME: 14:15 Assessment/Plan Assessment/Plan Chief Complaint/Hosp Course SUBJECTIVE: The patient is alert, feels good. Denies pain, discomfort. No fevers, no dysuria. ANTIMICROBIALS: PO Cipro, s/p Invanz PHYSICAL EXAMINATION: GENERAL: This is a morbidly obese, middle-aged man who is alert, in no distress. HEENT: Head atraumatic, normocephalic. Sclerae anicteric. Buccal mucosa pink. NECK: Supple. CHEST: Rise symmetrical. Breath sounds diminished. HEART: S1, S2. ABDOMEN: Soft. Bowel sounds present. EXTREMITIES: With trace edema. ASSESSMENT: 1. Resolving urinary tract infection with culture grew Escherichia coli extended-spectrum beta-lactamase, patient is completing antibiotic. 2. Hypertension. 3. Anemia. 4. Diplopia. 5. History of subarachnoid hemorrhage, status post ventriculostomy with removal. PLAN: The patient remains stable. Continue PO Cipro for [address] Holt's rec-s DW RN Problems: Consultation Date/Type/Reason Admit Date/Time January 22, 2017 at 22:10 Initial Consult Date 01/25/17 Type of Consultation: ID Referring Provider: EVERETTE SIDHU MD Exam/Review of Systems Vital Signs Vitals Vital Signs Date Time Temp Pulse Resp B/P Pulse Ox O2 Delivery O2 Flow Rate FiO2 02/04/17 07:32 98.3 72 18 109/57 98 02/01/17 08:00 Room Air Intake and Output 02/03/17 02/03/17 02/04/17 15:00 23:00 07:00 Intake Total 100 ml 620 ml 760 ml Balance 100 ml 620 ml 760 ml Results Result Diagram: 02/02/1772602/02/17726 Medications Medications Current Medications Enoxaparin Sodium (Lovenox) 40 mg DAILY SC Last administered on 02/04/17 09:32 ; Admin Dose 40 MG; Start 01/23/17 at 09:00 Magnesium Oxide (Mag-Ox 400) 400 mg BID PO Last administered on 02/04/17 09:32 ; Admin Dose 400 MG; Start 01/27/17 at 09:00 Ondansetron HCl (Zofran Inj) 4 mg Q8H PRN IV NAUSEA AND/OR VOMITING; Start 01/23 at 00:00 Docusate Sodium (Colace) 100 mg BID PO Last administered on 02/04/17 09:32; Admin Dose 100 MG; Start 01/23/17 at 09:00 Magnesium Hydroxide (Milk Of Mag) 30 ml Q6H PRN PO CONSTIPATION; Start 01/23/17 at 00:00 Lactulose (Enulose) 20 gm BID PRN PO CONSTIPATION; Start 01/23/17 at 00:00 Bisacodyl (Dulcolax Supp) 10 mg Q24H PRN [place] CONSTIPATION; Start 01/23/17 at 00: 00 Polyethylene Glycol (Miralax) 17 gm DAILY PRN PO CONSTIPATION; Start 01/23/17 at 00:00 Famotidine (Pepcid) 20 mg BID PO Last administered on 02/04/17 09:32; Admin Dose 20 MG; Start 01/23/17 at 09:00 Senna (Senokot) 1 tab BID PO Last administered on 02/04/17 09:32; Admin Dose 1 TAB; Start 01/23/17 at 09:00 Acetaminophen (Tylenol Tab) 650 mg Q6H PRN PO ELEVATED TEMPERATURE Last administered on 01/28/17 10:51; Admin Dose 650 MG; Start 01/23/17 at 00:00 Topiramate (Topamax) 25 mg BID PO Last administered on 02/04/17 09:31; Admin Dose 25 MG; Start 01/23/17 at 09:00 Oxycodone HCl (Roxicodone) 20 mg Q6 PO Last administered on 02/04/17 12:13; Admin Dose 20 MG; Start 01/23/17 at 12:00 Vitamin B Complex/ Vitamin C (Berocca) 1 cap DAILY PO Last administered on 02/04 09:30; Admin Dose 1 CAP; Start 01/23/17 at 15:00 Simethicone (Mylicon) 80 mg Q6 PRN PO DISTENSION/GAS/BLOATING; Start 01/24/17 at 20:00 IV Flush (NS 10 ml) 10 ml PRN PRN IV IV PROTOCOL Last administered on 01/30/17 09:48; Admin Dose 10 ML; Start 01/26/17 at 14:30 Meclizine HCl (Antivert) 25 mg TID PO Last administered on 02/04/17 12:15; Admin Dose 25 MG; Start 01/30/17 at 21:00 Atorvastatin Calcium (Lipitor) 20 mg HS PO Last administered on 02/03/17 20:55 ; Admin Dose 20 MG; Start 02/01/17 at 21:00 Ciprofloxacin (Cipro) 500 mg BID@,18 PO Last administered on 02/04/17 05:58 ; Admin Dose 500 MG; Start 02/03/17 at 06:00; Stop 02/14/17 at 12:00 Hydromorphone HCl (Dilaudid) 0.5 mg Q3H PRN IV SEVERE PAIN Last administered on 02/04/17 12:16; Admin Dose 0.5 MG; Start 02/04/17 at 09:00 BETH HUBBARD NP Feb 04, 2017 14:16
[2017-02-04] MEDS: ATORVASTATIN 20 MG TAB PO SCH (20:50)
[2017-02-04 20:51] VITALS: BP 126/72; RESP 18
--- NOTE | 2017-02-05 00:37 | PN ---
Date/Time of Note Date/Time of Note DATE: 02/05/17 TIME: 00:36 Assessment/Plan VTE Prophylaxis VTE Prophylaxis Intervention: other Lines/Catheters IV Catheter Type (from Nrsg): PICC Line Central line still needed: Yes Urinary Cath still in place: No Reason Cath still needed: other (indicate) Assessment/Plan Chief Complaint/Hosp Course cva htn esbl uti plan pt ot per neuro off antibioyic Problems: Subjective 24 Hr Interval Summary Cardiovascular: no complaints Gastrointestinal: no complaints Exam/Review of Systems Vital Signs Vitals Vital Signs Date Time Temp Pulse Resp B/P Pulse Ox O2 Delivery O2 Flow Rate FiO2 02/04/17 20:51 98.5 75 18 126/72 99 02/01/17 08:00 Room Air Intake and Output 02/04/17 02/04/17 02/05/17 15:00 23:00 07:00 Intake Total 1200 ml 600 ml Balance 1200 ml 600 ml Exam Respiratory: clear to auscultation Cardiovascular: regular rate and rhythm Gastrointestinal: soft Musculoskeletal: nl extremities to inspection Results Result Diagram: 02/02/1772602/02/17726 Medications Medications Current Medications Enoxaparin Sodium (Lovenox) 40 mg DAILY SC Last administered on 02/04/17 09:32 ; Admin Dose 40 MG; Start 01/23/17 at 09:00 Magnesium Oxide (Mag-Ox 400) 400 mg BID PO Last administered on 02/04/17 20:50 ; Admin Dose 400 MG; Start 01/27/17 at 09:00 Ondansetron HCl (Zofran Inj) 4 mg Q8H PRN IV NAUSEA AND/OR VOMITING; Start 01/23 at 00:00 Docusate Sodium (Colace) 100 mg BID PO Last administered on 02/04/17 20:50; Admin Dose 100 MG; Start 01/23/17 at 09:00 Magnesium Hydroxide (Milk Of Mag) 30 ml Q6H PRN PO CONSTIPATION; Start 01/23/17 at 00:00 Lactulose (Enulose) 20 gm BID PRN PO CONSTIPATION; Start 01/23/17 at 00:00 Bisacodyl (Dulcolax Supp) 10 mg Q24H PRN [place] CONSTIPATION; Start 01/23/17 at 00: 00 Polyethylene Glycol (Miralax) 17 gm DAILY PRN PO CONSTIPATION; Start 01/23/17 at 00:00 Famotidine (Pepcid) 20 mg BID PO Last administered on 02/04/17 20:50; Admin Dose 20 MG; Start 01/23/17 at 09:00 Senna (Senokot) 1 tab BID PO Last administered on 02/04/17 20:49; Admin Dose 1 TAB; Start 01/23/17 at 09:00 Acetaminophen (Tylenol Tab) 650 mg Q6H PRN PO ELEVATED TEMPERATURE Last administered on 01/28/17 10:51; Admin Dose 650 MG; Start 01/23/17 at 00:00 Topiramate (Topamax) 25 mg BID PO Last administered on 02/04/17 20:50; Admin Dose 25 MG; Start 01/23/17 at 09:00 Oxycodone HCl (Roxicodone) 20 mg Q6 PO Last administered on 02/04/17 18:11; Admin Dose 20 MG; Start 01/23/17 at 12:00 Vitamin B Complex/ Vitamin C (Berocca) 1 cap DAILY PO Last administered on 02/04 09:30; Admin Dose 1 CAP; Start 01/23/17 at 15:00 Simethicone (Mylicon) 80 mg Q6 PRN PO DISTENSION/GAS/BLOATING; Start 01/24/17 at 20:00 IV Flush (NS 10 ml) 10 ml PRN PRN IV IV PROTOCOL Last administered on 01/30/17 09:48; Admin Dose 10 ML; Start 01/26/17 at 14:30 Meclizine HCl (Antivert) 25 mg TID PO Last administered on 02/04/17 20:50; Admin Dose 25 MG; Start 01/30/17 at 21:00 Atorvastatin Calcium (Lipitor) 20 mg HS PO Last administered on 02/04/17 20:50 ; Admin Dose 20 MG; Start 02/01/17 at 21:00 Ciprofloxacin (Cipro) 500 mg BID@ PO Last administered on 02/04/17 18:13 ; Admin Dose 500 MG; Start 02/03/17 at 06:00; Stop 02/14/17 at 12:00 Hydromorphone HCl (Dilaudid) 0.5 mg Q3H PRN IV SEVERE PAIN Last administered on 6/13/17at 19:04; Admin Dose 0.5 MG; Start 02/04/17 at 09:00 EVERETTE SIDHU MD Feb 05, 2017 00:37
[2017-02-05] MEDS: CIPROFLOXACIN 500 MG TAB PO SCH (06:16)
[2017-02-05] MEDS: oxyCODONE 5 MG TAB PO SCH ×3 (06:17→13:52)
[2017-02-05] MEDS: HYDROmorphONE 1 MG/ML SYG IV PRN ×3 (07:37→14:02)
[2017-02-05] MEDS: ENOXAPARIN 40 MG/0.4 ML SYG SC SCH (07:42)
[2017-02-05] MEDS: FAMOTIDINE 20 MG TAB PO SCH (09:30)
[2017-02-05] MEDS: DOCUSATE SODIUM 100 MG CAP PO SCH (09:30)
[2017-02-05] MEDS: MECLIZINE 25 MG TAB PO SCH ×2 (09:31→10:41)
[2017-02-05] MEDS: MAGNESIUM OXIDE 400 MG TAB PO SCH (10:32)
[2017-02-05] MEDS: SENNA TAB PO SCH (10:41)
[2017-02-05] MEDS: TOPIRAMATE 25 MG TAB PO SCH (10:42)
[2017-02-05] MEDS: VITAMIN B COMPLEX/VIT C CAP PO SCH (10:42)
--- NOTE | 2017-02-05 19:44 | PN ---
Date/Time of Note Date/Time of Note DATE: 02/05/17 TIME: 19:43 Assessment/Plan VTE Prophylaxis VTE Prophylaxis Intervention: other Lines/Catheters IV Catheter Type (from Nrsg): PICC Line Central line still needed: Yes Urinary Cath still in place: No Reason Cath still needed: other (indicate) Assessment/Plan Chief Complaint/Hosp Course cva htn esbl uti plan pt ot per neuro off antibioyic Problems: Subjective 24 Hr Interval Summary Cardiovascular: no complaints Gastrointestinal: no complaints Exam/Review of Systems Vital Signs Vitals Vital Signs Date Time Temp Pulse Resp B/P Pulse Ox O2 Delivery O2 Flow Rate FiO2 02/04/17 20:51 98.5 75 18 126/72 99 02/01/17 08:00 Room Air Intake and Output 02/04/17 02/04/17 02/05/17 15:00 23:00 07:00 Intake Total 1200 ml 600 ml 740 ml Balance 1200 ml 600 ml 740 ml Exam Respiratory: clear to auscultation Cardiovascular: regular rate and rhythm Gastrointestinal: soft Results Result Diagram: 02/02/1772602/02/17726 Medications Medications Current Medications Enoxaparin Sodium (Lovenox) 40 mg DAILY SC Last administered on 02/05/17 07:42 ; Admin Dose 40 MG; Start 01/23/17 at 09:00 Magnesium Oxide (Mag-Ox 400) 400 mg BID PO Last administered on 02/05/17 10:32 ; Admin Dose 400 MG; Start 01/27/17 at 09:00 Ondansetron HCl (Zofran Inj) 4 mg Q8H PRN IV NAUSEA AND/OR VOMITING; Start 01/23 at 00:00 Docusate Sodium (Colace) 100 mg BID PO Last administered on 02/05/17 09:30; Admin Dose 100 MG; Start 01/23/17 at 09:00 Magnesium Hydroxide (Milk Of Mag) 30 ml Q6H PRN PO CONSTIPATION; Start 01/23/17 at 00:00 Lactulose (Enulose) 20 gm BID PRN PO CONSTIPATION; Start 01/23/17 at 00:00 Bisacodyl (Dulcolax Supp) 10 mg Q24H PRN [place] CONSTIPATION; Start 01/23/17 at 00: 00 Polyethylene Glycol (Miralax) 17 gm DAILY PRN PO CONSTIPATION; Start 01/23/17 at 00:00 Famotidine (Pepcid) 20 mg BID PO Last administered on 02/05/17 09:30; Admin Dose 20 MG; Start 01/23/17 at 09:00 Senna (Senokot) 1 tab BID PO Last administered on 02/05/17 10:41; Admin Dose 1 TAB; Start 01/23/17 at 09:00 Acetaminophen (Tylenol Tab) 650 mg Q6H PRN PO ELEVATED TEMPERATURE Last administered on 01/28/17 10:51; Admin Dose 650 MG; Start 01/23/17 at 00:00 Topiramate (Topamax) 25 mg BID PO Last administered on 02/05/17 10:42; Admin Dose 25 MG; Start 01/23/17 at 09:00 Oxycodone HCl (Roxicodone) 20 mg Q6 PO Last administered on 02/05/17 13:52; Admin Dose 20 MG; Start 01/23/17 at 12:00 Vitamin B Complex/ Vitamin C (Berocca) 1 cap DAILY PO Last administered on 02/05 10:42; Admin Dose 1 CAP; Start 01/23/17 at 15:00 Simethicone (Mylicon) 80 mg Q6 PRN PO DISTENSION/GAS/BLOATING; Start 01/24/17 at 20:00 IV Flush (NS 10 ml) 10 ml PRN PRN IV IV PROTOCOL Last administered on 01/30/17 09:48; Admin Dose 10 ML; Start 01/26/17 at 14:30 Meclizine HCl (Antivert) 25 mg TID PO Last administered on 02/05/17 10:41; Admin Dose 25 MG; Start 01/30/17 at 21:00 Atorvastatin Calcium (Lipitor) 20 mg HS PO Last administered on 02/04/17 20:50 ; Admin Dose 20 MG; Start 02/01/17 at 21:00 Ciprofloxacin (Cipro) 500 mg BID@18 PO Last administered on 02/05/17 06:16 ; Admin Dose 500 MG; Start 02/03/17 at 06:00; Stop 02/14/17 at 12:00 Hydromorphone HCl (Dilaudid) 0.5 mg Q3H PRN IV SEVERE PAIN Last administered on 6/14/17at 14:02; Admin Dose 0.5 MG; Start 02/04/17 at 09:00 EVERETTE SIDHU MD Feb 05, 2017 19:44
--- NOTE | 2017-02-07 10:34 | DS ---
DATE OF ADMISSION: 01/22/2017 DATE OF DISCHARGE: 02/05/2017 ADMISSION DIAGNOSES: 1. Diffuse subarachnoid hemorrhage, status post ventriculostomy and external ventricular drain plac ement, with eventual removal. 2. Hypertension. 3. Morbid obesity. 4. Impairments in self-care, mobility and cognition. DISCHARGE DIAGNOSES: 1. Diffuse subarachnoid hemorrhage, status post ventriculostomy and external ventricular drain plac ement, with eventual removal. 2. Hypertension. 3. Morbid obesity. 4. Improvements in self-care, mobility and cognition. 5. Resolving urinary tract infection. HOSPITAL COURSE: The patient was admitted for comprehensive interdisciplinary acute rehab and made excellent functional gains during the course of the stay. The patient progressed from an initial mo derate assist for self-care and mobility tasks and progressed to the point of standby assist for all areas of self-care and mobility, including ambulating over 150 feet with the use of a front-wheel w alker. During the course of the stay the patient was noted to have significant diplopia, which was managed with alternate eye patching. The patient will follow up with ophthalmology and neurology up on discharge. DISCHARGE MEDICATIONS: Per the medication reconciliation sheet. CONDITION ON DISCHARGE: Good. Dictated By: MILTON FERREIRA/CARMELA Conf#: [id number] DID#: [id number]
== END 2017-02-05 15:45 | disposition home health service (06) | DRG 56 ==
LOC: VRC 22:10
PROVIDERS: ADMIT Physical Medicine & Rehabilitation; ATTEND Internal Medicine Nephrology
PROC: F07Z5ZZ Bed Mobility Treatment (ICD-10-PCS; principal; 2017-01-22)
PROC: F08Z2ZZ Grooming/Personal Hygiene Treatment (ICD-10-PCS; 2017-01-22)
PROC: 02HV33Z Insertion of Infusion Device into Superior Vena Cava, Percutaneous Approach (ICD-10-PCS; 2017-01-26)
DX: I69.00 Unspecified sequelae of nontraumatic subarachnoid hemorrhage (principal); I60.9 Nontraumatic subarachnoid hemorrhage, unspecified; Z68.42 Body mass index [BMI] 45.0-49.9, adult; N39.0 Urinary tract infection, site not specified; I10 Essential (primary) hypertension; D64.9 Anemia, unspecified; H53.2 Diplopia; Z79.82 Long term (current) use of aspirin; R51 Headache; B96.20 Unspecified Escherichia coli [E. coli] as the cause of diseases classified elsewhere; E66.01 Morbid (severe) obesity due to excess calories
CPT/HCPCS: 36569; 70450; 71010; 76937; 80048; 80053; 80061; 81003; 83735; 85025; 87081; 87086; 92507; 92523; 92526; 92610; 97110; 97112; 97116; 97150; 97163; 97167; 97530; 97535; C1769; J1170; J1335; J1650; J3475; J7030